=== PATIENT | female | born 1955 | race Caucasian/White ===

== ENCOUNTER 2018-02-21 13:05 | Inpatient (IN) | payer BC, MEDICARE ==
[2018-02-21 14:32] LABS: Basophils # (A) 0.1 k/uL (0-0.2); Basophils % (A) 1 %; Eosinophils # (A) 0.1 k/uL (0-0.7); Eosinophils % (A) 1 %; HCT 36.5 % (34.0-46.0); HGB 12.7 gm/dL (11.4-16.0); Lymphocytes # (A) 1.9 k/uL (1.0-4.8); Lymphocytes % (A) 28 %; MCH 31.8 pg (25.0-35.0); MCHC 34.8 g/dL (31.0-37.0); MCV 91.2 fL (80.0-100.0); Mean Platelet Volume 6.6; Monocytes # (A) 0.4 k/uL (0-1.0); Monocytes % (A) 6 %; Neutrophils # (A) 4.4 k/uL (1.3-7.7); Neutrophils % (A) 63 %; Platelet Count 245 k/uL (150-450); RDW 12.9 % (11.5-15.5)
[2018-02-21 14:51] LABS: Calcium 8.7 mg/dL (8.4-10.2); Potassium 4.1 mmol/L (3.5-5.1)
[2018-02-21 15:00] LABS: Amphetamine Screen,Urine Not Detected (NotDetected); Barbiturate Screen,Urine Not Detected (NotDetected); Benzodiazepines Screen,Urine Not Detected (NotDetected); Cocaine Screen,Urine Not Detected (NotDetected); Methadone Screen, Urine Not Detected (NotDetected); Opiate Screen,Urine Not Detected (NotDetected); Oxycodone Screen, Urine Not Detected (NotDetected); Phencyclidine Screen,Urine Not Detected (NotDetected); Tricyclic Antidepressant,Urine Not Detected (NotDetected); Urn Cannabinoid Scrn Not Detected (NotDetected)
[2018-02-21 15:39] LABS: Appearance,Urine Clear (Clear); Bilirubin,Urine Negative (Negative); Blood,Urine Negative (Negative); Color,Urine Yellow; Glucose,Urine (UA) Negative (Negative); Ketones,Urine Negative (Negative); Leukocyte Esterase,Urine Negative (Negative); Nitrite,Urine Negative (Negative); PH, Urine 5.5 (5.0-8.0); Protein,Urine Trace (Negative); Specific Gravity,Urine 1.014 (1.001-1.035); Urobilinogen,Urine <2.0 mg/dL (<2.0)
--- NOTE | 2018-02-21 15:51 | ED ---
General Adult HPI - General Chief complaint: Psychiatric Symptoms Stated complaint: DEMENTIA, ANGRY OUTBURSTS Time Seen by Provider: 02/21/18 13:05 Source: EMS, RN notes reviewed Mode of arrival: EMS Limitations: altered mental status - History of Present Illness Initial comments: this is a 62-year-old female who presents emergency Department with a 8-9 year history of advancing dementia. is trying to get the patient in a extended care facility because he is unable to take care of her because he works all day. He states that she is becoming unsafe even to the point where she is unable to go to the bathroom on her own. Today a manager social media came [facility] to speak with the patient and the patient got extremely angry and started saying that she was given a kill herself at this point time EMS was called as were the police. Patient doesn't know why she is here and doesn't believe she needs to be here and has no complaints. Patient is alert and oriented times one and she doesn't know the day of the week she doesn't know the name of the hospital and she doesn't know the year. states from a physical standpoint he does not know of any problems at this time he states she has not complained of any pain she has not had any problems breathing there's been no fevers been no vomiting or diarrhea. - Related Data Home Medications Medication Instructions Recorded Confirmed Ergocalciferol [Vitamin D2 50,000 unit PO TUFR 03/14/14 02/21/18 (DRISDOL)] Gabapentin [Neurontin] 300 mg PO QAM 03/14/14 02/21/18 Levothyroxine Sodium [Synthroid] 25 mcg PO DAILY 03/14/14 02/21/18 Donepezil [Aricept] 10 mg PO HS 06/24/15 02/21/18 Gabapentin [Neurontin] 200 mg PO HS 06/24/15 02/21/18 Multivit-Min/FA/Lycopene/Lut 1 tab PO DAILY 06/24/15 02/21/18 [Centrum Silver Tablet] Calcitriol [Rocaltrol] 0.25 mcg PO Q7D 02/21/18 02/21/18 FLUoxetine HCL [PROzac] 10 mg PO DAILY 02/21/18 02/21/18 Fish Oil 1400mg 1 cap PO DAILY 02/21/18 02/21/18 Memantine HCl [Namenda Xr] 7 mg PO DAILY 02/21/18 02/21/18 traMADol HCL [traMADol HCL ER] 100 mg PO DAILY PRN 02/21/18 02/21/18 Previous Rx's Medication Instructions Recorded Aspirin EC [Ecotrin Low Dose] 81 mg PO DAILY #1 tablet. 09/03/14 Allergies Allergy/AdvReac Type Severity Reaction Status Date / Time No Known Allergies Allergy Verified 02/21/18 13:30 Review of Systems ROS Statement: Those systems with pertinent positive or pertinent negative responses have been documented in the HPI. ROS Other: All systems not noted in ROS Statement are negative. Past Medical History Past Medical History: Dementia, Hypertension, Memory Impairment, Osteoarthritis (OA), Pneumonia, Thyroid Disorder Additional Past Medical History / Comment(s): Crohns, KIDNEY STONE, ANEMIA, ACUTE CORANARY SYNDROME History of Any Multi-Drug Resistant Organisms: None Reported Past Surgical History: Adenoidectomy, Bowel Resection, Cholecystectomy, Heart Catheterization, Hysterectomy, Tonsillectomy, Tubal Ligation Additional Past Surgical History / Comment(s): kidney stone X2 (February 2014, few weeks later second one via Johann), Gallblader (FEBRUARY 2014 [facility]), Bowel Resection d/t [id number], SMALL BOWEL CAPSULE ENDOSCOPY, COLONOSCOCPY. Past Anesthesia/Blood Transfusion Reactions: No Reported Reaction Past Psychological History: Depression Smoking Status: Former smoker Past Alcohol Use History: None Reported Past Drug Use History: None Reported - Past Family History Mother History Unknown: Yes Father History Unknown: Yes Sister(s) Family Medical History: Asthma Additional Family Medical History / Comment(s): Passed on from asthma attack General Exam - General Exam Comments Initial Comments: GENERAL: Patient is well-developed and well-nourished. Patient is nontoxic and well- hydrated and is in no acute distress. ENT: Neck is soft and supple. No significant lymphadenopathy is noted. Oropharynx is clear. Moist mucous membranes. Neck has full range of motion without eliciting any pain. EYES: The sclera were anicteric and conjunctiva were pink and moist. Extraocular movements were intact and pupils were equal round and reactive to light. Eyelids were unremarkable. PULMONARY: Unlabored respirations. Good breath sounds bilaterally. No audible rales rhonchi or wheezing was noted. CARDIOVASCULAR: There is a regular rate and rhythm without any murmurs gallops or rubs. ABDOMEN: Soft and nontender with normal bowel sounds. SKIN: Skin is clear with no lesions or rashes and otherwise unremarkable. NEUROLOGIC: Patient is alert and oriented 1. Cranial nerves II through XII are grossly intact. Motor and sensory are also intact. Normal speech, volume and content. Symmetrical smile. MUSCULOSKELETAL: Normal extremities with adequate strength and full range of motion. No lower extremity swelling or edema. No calf tenderness. LYMPHATICS: No significant lymphadenopathy is noted PSYCHIATRIC: Patient is angry and uncooperative because she does not want to be here. Limitations: altered mental status Course Vital Signs 02/21/18 13:07 Temperature 97 F L Pulse Rate 64 Respiratory 18 Rate Blood Pressure 153/72 O2 Sat by Pulse 100 Oximetry Medical Decision Making - Medical Decision Making I spoke with Dr. Snowden he agreed to admit the patient I consult the psychiatry and social work Patient is not admitted to being suicidal when I talked were however when she's angry she starts saying that to her . - Lab Data Result diagrams: 02/21/18 14:22 02/21/18 14:22 Lab Results 02/21/18 02/21/18 02/21/18 Range/Units 14:22 14:22 14:35 WBC 7.0 (3.8-10.6) k/uL RBC 4.00 (3.80-5.40) m/uL Hgb 12.7 (11.4-16.0) gm/dL Hct 36.5 (34.0-46.0) % MCV 91.2 (80.0-100.0) fL MCH 31.8 (25.0-35.0) pg MCHC 34.8 (31.0-37.0) g/dL RDW 12.9 (11.5-15.5) % Plt Count 245 (150-450) k/uL Neutrophils % 63 % Lymphocytes % 28 % Monocytes % 6 % Eosinophils % 1 % Basophils % 1 % Neutrophils # 4.4 (1.3-7.7) k/uL Lymphocytes # 1.9 (1.0-4.8) k/uL Monocytes # 0.4 (0-1.0) k/uL Eosinophils # 0.1 (0-0.7) k/uL Basophils # 0.1 (0-0.2) k/uL Sodium 145 (137-145) mmol/L Potassium 4.1 (3.5-5.1) mmol/L Chloride 112 H (98-107) mmol/L Carbon Dioxide 20 L (22-30) mmol/L Anion Gap 13 mmol/L BUN 11 (7-17) mg/dL Creatinine 1.60 H (0.52-1.04) mg/dL Est GFR (CKD-EPI)AfAm 39 (>60 ml/min/1.73 sqM) Est GFR (CKD-EPI)NonAf 34 (>60 ml/min/1.73 sqM) Glucose 72 L (74-99) mg/dL Calcium 8.7 (8.4-10.2) mg/dL Urine Color Urine Appearance (Clear) Urine pH (5.0-8.0) Ur Specific Crucible (1.001-1.035) Urine Protein (Negative) Urine Glucose (UA) (Negative) Urine Ketones (Negative) Urine Blood (Negative) Urine Nitrite (Negative) Urine Bilirubin (Negative) Urine Urobilinogen (<2.0) mg/dL Ur Leukocyte Esterase (Negative) Urine Opiates Screen Not Detected (NotDetected) Ur Oxycodone Screen Not Detected (NotDetected) Urine Methadone Screen Not Detected (NotDetected) Ur Propoxyphene Screen Not Detected (NotDetected) Ur Barbiturates Screen Not Detected (NotDetected) U Tricyclic Antidepress Not Detected (NotDetected) Ur Phencyclidine Scrn Not Detected (NotDetected) Ur Amphetamines Screen Not Detected (NotDetected) U Methamphetamines Scrn Not Detected (NotDetected) U Benzodiazepines Scrn Not Detected (NotDetected) Urine Cocaine Screen Not Detected (NotDetected) U Marijuana (THC) Screen Not Detected (NotDetected) 02/21/18 Range/Units 14:35 WBC (3.8-10.6) k/uL RBC (3.80-5.40) m/uL Hgb (11.4-16.0) gm/dL Hct (34.0-46.0) % MCV (80.0-100.0) fL MCH (25.0-35.0) pg MCHC (31.0-37.0) g/dL RDW (11.5-15.5) % Plt Count (150-450) k/uL Neutrophils % % Lymphocytes % % Monocytes % % Eosinophils % % Basophils % % Neutrophils # (1.3-7.7) k/uL Lymphocytes # (1.0-4.8) k/uL Monocytes # (0-1.0) k/uL Eosinophils # (0-0.7) k/uL Basophils # (0-0.2) k/uL Sodium (137-145) mmol/L Potassium (3.5-5.1) mmol/L Chloride (98-107) mmol/L Carbon Dioxide (22-30) mmol/L Anion Gap mmol/L BUN (7-17) mg/dL Creatinine (0.52-1.04) mg/dL Est GFR (CKD-EPI)AfAm (>60 ml/min/1.73 sqM) Est GFR (CKD-EPI)NonAf (>60 ml/min/1.73 sqM) Glucose (74-99) mg/dL Calcium (8.4-10.2) mg/dL Urine Color Yellow Urine Appearance Clear (Clear) Urine pH 5.5 (5.0-8.0) Ur Specific Crucible 1.014 (1.001-1.035) Urine Protein Trace H (Negative) Urine Glucose (UA) Negative (Negative) Urine Ketones Negative (Negative) Urine Blood Negative (Negative) Urine Nitrite Negative (Negative) Urine Bilirubin Negative (Negative) Urine Urobilinogen <2.0 (<2.0) mg/dL Ur Leukocyte Esterase Negative (Negative) Urine Opiates Screen (NotDetected) Ur Oxycodone Screen (NotDetected) Urine Methadone Screen (NotDetected) Ur Propoxyphene Screen (NotDetected) Ur Barbiturates Screen (NotDetected) U Tricyclic Antidepress (NotDetected) Ur Phencyclidine Scrn (NotDetected) Ur Amphetamines Screen (NotDetected) U Methamphetamines Scrn (NotDetected) U Benzodiazepines Scrn (NotDetected) Urine Cocaine Screen (NotDetected) U Marijuana (THC) Screen (NotDetected) Disposition Clinical Impression: Advanced dementia, Adjustment reaction, Verbalizes suicidal thoughts Disposition: ADMITTED IP TO THIS [facility] Referrals: Omar Bustillo DO [Primary Care Provider] - 1-2 days Time of Disposition: 15:51
[2018-02-21] MEDS ORDERED: SODIUM CHLORIDE 0.9% 1,000 ML IV ONE (15:53)
[2018-02-22] MEDS ORDERED: GABAPENTIN 100 MG CAP PO SCH (00:15)
[2018-02-22] MEDS ORDERED: QUEtiapine 25 MG TAB PO SCH (00:30)
[2018-02-22] MEDS: DEXTROSE 5%-0.45% NACL 1,000 ML IV SCH ×2 (01:02→13:41)
[2018-02-22] MEDS: LEVOTHYROXINE 25 MCG TAB PO SCH (05:17)
--- NOTE | 2018-02-22 06:03 | HP ---
HISTORY AND PHYSICAL DATE OF SERVICE: 02/21/2018 PRESENTING COMPLAINT: Suicidal ideation. HISTORY OF PRESENTING COMPLAINT: This is a patient I saw last night on 02/21/2018. Patient is accompanied by her . The patient's chronic stable medical conditions include Crohn disease, had Takotsubo syndrome though repeat echo had showed normalized EF, seen by Dr. Schafer recently, hypothyroid, fibromyalgia. The patient has had dementia coming on for last 10 years, getting worse and patient becoming increasingly forgetful. goes to work, finds it difficult to now leave her at home. He has spoken to Dr. Bustillo and they were trying to get the patient to another place. stockroom worker came out and patient then threaten saying she did not want to leave and also threatened that she is going to kill herself and this precipitated getting her to the hospital. It is difficult to get much of a conversation out of the patient. Somewhat restless. REVIEW OF SYSTEMS: CONSTITUTIONAL: None. HEENT: None. RESPIRATORY: None. CARDIOVASCULAR: None. GASTROINTESTINAL: Has multiple stools a day. DERMATOLOGICAL: None. HEMATOLOGIC: None. LYMPHATIC: None. PSYCHIATRY: Forgetful. NEUROLOGICAL: None. PAST MEDICAL HISTORY: Past medical history of Crohn disease, Takotsubo syndrome, dementia, hypothyroid, fibromyalgia, kidney stones. PAST SURGICAL HISTORY: Adenoidectomy, bowel resection, cholecystectomy, cardiac catheterization, hysterectomy, tonsillectomy, tubal ligation, cholecystectomy, multiple bowel surgery by Dr. Jiménez way back, small bowel capsule endoscopy, several colonoscopies. PAST PSYCH HISTORY: Depression. SOCIAL HISTORY: The patient smoked from her teen years and quit in 1979, was smoking about a pack a week. Alcohol none. Lives with her . FAMILY HISTORY: Family history of asthma. HOME MEDICATIONS: 1. Ultram 100 mg p.o. daily p.r.n. 2. Centrum Silver 1 tablet p.o. daily. 3. Namenda XR 7 mg p.o. daily. 4. Synthroid 25 mcg p.o. daily. 5. Neurontin 200 mg at bedtime and 300 mg in the morning. 6. Fish oil 1 capsule p.o. daily. 7. Prozac 10 mg p.o. daily. 8. Vitamin D2, 50,000 units Monday and Monday. 9. Aricept 10 mg p.o. at bedtime. 10.Rocaltrol 0.25 mcg every 7 days. 11.Aspirin 81 mg p.o. daily. ALLERGIES: None. PHYSICAL EXAMINATION: Temperature 97.8, pulse 83, respirations 18, blood pressure 159/94, pulse ox 95% on room air. Repeat blood pressure was 119/76. GENERAL APPEARANCE: Average built, sitting up, somewhat restless. EYES: Pupils equal. Conjunctivae normal. HENT: External appearance of nose and ears normal. Oral cavity normal. Patient has got scanty hair. NECK: JVD not raised. Mass not palpable. RESPIRATORY: Effort Lungs are fair. CARDIOVASCULAR: First and second sounds normal. No edema. ABDOMEN: Soft, nontender. Liver and spleen not palpable. LYMPHATIC: No lymph node palpable in the neck or axillae. PSYCHIATRY: The patient is not sure where she is or why she is here or the month. INVESTIGATIONS: White count 7, hemoglobin 12.7. Potassium 4.1. BUN 11, creatinine 1.60. ASSESSMENT: 1. Acute suicidal ideations. 2. Elevated creatinine could be acute versus chronic kidney disease in the setting of multiple stools. 3. Hypoglycemia from probably decreased oral intake. 4. Advancing dementia. PLAN: Patient obviously not safe to be by herself. Needs a sitter. Will get a psychiatry opinion. In the meantime, will give patient 25 mg Seroquel for the night. Will do CT scan of the brain without contrast, B12, TSH. Maybe the Synthroid is a bit over replacement for this lady. If anything, patient looks a bit more hyper rather than hypothyroid. Will also cut back on the dose of Neurontin to see if that makes a difference. The patient will be given D5 and see if her renal function improves. We will also do a renal ultrasound. The patient needs to be in the hospital overnight for at least 2 nights. It is not found safe for patient to go home with mental condition and trying to make suicidal statements. Will have psychiatry evaluation for the same. Care was discussed with the patient's . MMCLARENCEL / SEANN: [id number] /
[2018-02-22] MEDS ORDERED: GABAPENTIN 300 MG CAP PO SCH (09:00)
[2018-02-22] MEDS: ASPIRIN 81 MG PO SCH (09:52)
[2018-02-22] MEDS: FLUoxetine HCL 10 MG CAP PO SCH (09:52)
[2018-02-22] MEDS: MEMANTINE 5 MG TAB PO SCH (09:52)
[2018-02-22] MEDS: GABAPENTIN 100 MG CAP PO SCH ×3 (09:52→19:39)
--- NOTE | 2018-02-22 10:09 | US ---
EXAMINATION TYPE: US abd limited kidneys/bladder DATE OF EXAM: 02/22/2018 COMPARISON: 03/13/2014 CLINICAL HISTORY: renal failure. Poor historian. Hx of GB removed EXAM MEASUREMENTS: Liver Length: 16.3 cm CBD: 0.5 cm CHD: 0.2 cm Right Kidney: 8.4 x 3.4 x 3.6 cm Left Kidney: 9.4 x 3.1 x 3.8 cm Pancreas: Tail obscured by overlying bowel gas Liver: wnl Gallbladder: Surgically absent CBD: wnl CHD: wnl Right Kidney: Multiple echogenic foci seen. Largest with shadow in lower pole = 0.8 x 1.0 cm. Medi al anechogenic lesion at hilum - 1.0 x 1.3 x 0.8 cm . There is mild cortical renal thinning noted. Left Kidney: Multiple echogenic foci seen, largest - 0.5 cm. Upper pole cystic appearing lesion = 0 .5 x 0.5 x 0.7 cm . There is mild cortical renal thinning noted. Bladder: wnl Bilateral Jets not seen IMPRESSION: Sonographic evidence of medical renal disease and bilateral nonobstructing nephrolithiasi s. Right renal cyst and probable subcentimeter left renal cyst are identified.
[2018-02-22] MEDS ORDERED: QUEtiapine 25 MG TAB PO PRN (15:26)
--- NOTE | 2018-02-22 15:26 | P.CN ---
Psychiatric Consult - . Consult date: 02/22/18 Consult:: 02/22/18 15:10 Identification: Patient is a 62-year-old female who was admitted to the hospital after social work was seeing her discussing fdc placement and the patient reported that she was going to kill herself, social work called 911 and the police and EMS were called and brought the patient to the emergency room Reason for Consult: Suicidal ideation History of Present Illness: Patient's chart was reviewed and the patient was seen in her room for a brief period of time alone, her was also present later in the interview and was the primary historian. Patient was unable to give me any accurate history. Patient was unable to respond to questions in a relevant fashion, her sentences were coherent however not relevant and were noninformative. Patient's answers were vague such as "they go on and on at the house", when I do things going to ceramics, they won't leave me alone. When I asked the patient if she wanted to kill herself she said no "they are doing it, other people want it". Patient's was interviewed outside and he stated that his has been diagnosed with dementia for the last 8 years. He states that currently he has cameras in the house and can remotely control the television so is able to watch his during the day at home. She has never left the house or roamed out of the house, stating that she does go in the backyard but has never left the property. She is not able to cook and unless he leaves food out on the counter she is unable to find it in the refrigerator. Patient needs assistance with all of her activities of daily living, including needing some assistance in feeding herself so that she uses the correct utensils. Patient is also unable to toilet herself and is using adult diapers. Patient reports that he's been home for the last 16 days but prior to his being home when he was working on a full-time basis when he would return home she would be crying and stating that she is afraid to be alone and needs to be put someplace like a fdc. He states that since he is been home he's been trying to arrange this by researching different facilities and had a psychiatric social worker supervisor from [facility], and interviewed the patient yesterday, patient's reports she became quite upset stating that she did not want to go there and reporting that she wanted to . Patient did not make any effort to injure herself yesterday and he states that she has never made any suicide attempts and to his knowledge has no psychiatric history. Patient's reports that he is unable to care for her at home while he is working. He reports no physical confrontations and that mostly she is been very pleasant and happy at home, she has never made any statements about suicide to him in the past and he states that she is able to recognize friends, grandchildren but does not recall names at times. Past Psychiatric History: Patient's is unaware of any prior psychiatric history Past Medical/Surgical History: Patient has a history of thyroid disorder and is status post cholecystectomy appendectomy about resection secondary to Crohn's disease, had a heart catheterization and hysterectomy. Family History: He is unaware of a history of any dementia in her family Social History: Patient was before and her first is in halfway for murder, she had her current been for 32 years and she has 2 children from her prior marriage both adults. She and her live together and he is working full-time. Substance Use History: No history of alcohol or drug use Mental status: Appearance/Attitude: Patient is sitting in her hospital bed, she made intermittent eye contact and was cooperative Behavior: Patient did not exhibit any psychomotor agitation or retardation Speech/Language: Patient spoke in a normal volume and tone she was coherent but not relevant Thought Process: Patient was unable to respond to questions in a relevant fashion, with any detail and at times had difficulty finding her words Thought Content: Patient did not appear to be responding to any auditory or visual hallucinations, she did not express any delusional or paranoid ideation. Patient did recognize her friend by name came to visit, as well as she recognized her . When I asked the patient about why she stated she was suicidal she was unable to answer many making vague statements about they aren' t doing it,, other people want it Suicidal/Homicidal Ideation: Patient denied that she wanted to kill herself, no current homicidal ideation Sensorium/Cognition: Patient is alert and oriented to person, city and situation and further cognitive testing was not performed as the patient was unable to give me an accurate history Mood/Affect: Patient's mood was pleasant and her affect was appropriate Insight/Judgment: Patient's insight and judgment are impaired Assessment: Patient has had a diagnosis of dementia for the last 8 years, per her he is performing all of her activities of daily living, she needs assistance to eat so that she uses the correct utensils. She has never left the house, she has been crying and afraid to be alone when he was working full- time and he states he took off 2 weeks to arrange to have her transferred to a fdc as he is unable to continue taking care of her at home by himself. When the psychiatric social worker supervisor came to visit to do an assessment the patient became upset and stated that she wanted to and the psychiatric social worker supervisor called 911. Diagnosis: Major neurocognitive disorder Plan: Patient slept quietly in the hospital last evening and has been cooperative while she is been in the hospital. Patient became upset yesterday when placement in a fdc was discussed she voiced her that she didn't want to leave her house and then said she wanted to , he states that when he is been working and comes home she has requested to be put someplace because she dislikes being alone. I discussed with the that he needs to consider obtaining guardianship and he stated that he has spoken to an corporate associate attorney and has paperwork in process. I discussed that with the 's plans for fdc, we discussed need for a period of adjustment when she is placed. Patient was given Seroquel 25 mg at bedtime I will move this earlier in the evening and will also order 25 mg once a day on an as-needed basis should the patient become agitated. Patient may need to be discharged on this if she is being transferred to a fdc as I'm sure there will be a period of adjustment. At this time patient does not need a sitter for suicide precautions but would continue a sitter for safety reasons as the patient does need assistance with all of her activities of daily living. Patient is not appropriate for an inpatient psychiatric admission and does not require one. I will sign off the case if there are any further questions or concerns please don 't hesitate to contact me
[2018-02-22 16:23] LABS: Calcium 8.3 mg/dL (8.4-10.2); Potassium 4.6 mmol/L (3.5-5.1)
[2018-02-22] MEDS: QUEtiapine 25 MG TAB PO SCH (19:39)
[2018-02-22] MEDS: DONEPEZIL 10 MG TAB PO SCH (19:39)
--- NOTE | 2018-02-22 20:22 | PN ---
PROGRESS NOTE DATE OF SERVICE: 02/22/2018 PRESENTING COMPLAINT: Confused. INTERVAL HISTORY: This is a patient with advanced dementia, admitted initially with expressing suicidal thoughts. Seen earlier by Psychiatry, Dr. Mcmahon, today. Sitter for suicide purposes has been discontinued; more for safety reasons. Patient's daughter is at the bedside. Patient ate rather well today and also drank quite a bit of fluids. Other family members are present at the bedside. Patient is sitting up in bed, appears comfortable. REVIEW OF SYSTEMS: Done for constitutional, cardiovascular, GI, pulmonary; relevant findings as above. CURRENT MEDICATIONS: Reviewed. PHYSICAL EXAMINATION: Temperature 97.4, pulse 54, respiration 18, blood pressure 103/70, pulse ox 100% on room air. GENERAL APPEARANCE: Sitting up in bed. Comfortable. EYES: Pupils equal. Conjunctivae normal. HEENT: External appearance of nose and ears normal. Oral cavity normal. NECK: JVD not raised. Mass not palpable. RESPIRATORY: Effort normal. Lungs are clear. CARDIOVASCULAR: First and second sounds normal. No edema. ABDOMEN: Soft, nontender. Liver and spleen not palpable. PSYCHIATRY: Patient is only able to answer simple questions. Otherwise she does not know the month or the year or why she is here. INVESTIGATIONS: Potassium 4.6, BUN 12, creatinine 1.62. Bicarb is 24. Renal ultrasound shows bilateral cortical thinning and evidence of nephrolithiasis. ASSESSMENT: 1. Major neurocognitive disorder, likely from advancing Alzheimer's dementia. 2. Hypoglycemia, improving. 3. Chronic kidney disease, stage III, probably from chronic nephrolithiasis. 4. Bilateral nephrolithiasis, asymptomatic. 5. Metabolic acidosis from renal failure, improving. Pending CT scan and TSH results. PLAN: Spoke to the patient's daughter at length. Psychiatry has put the patient on Seroquel p.r.n., including the evening dose. Will discontinue the IV fluids. balancing machine set up worker is looking into placement. MMODL / IJN: [id number] /
--- NOTE | 2018-02-22 20:29 | CT ---
EXAMINATION TYPE: CT brain wo con DATE OF EXAM: 02/22/2018 COMPARISON: NONE HISTORY: Dementia CT DLP: 1027.1 mGycm Automated exposure control for dose reduction was used. FINDINGS: There is cerebral moderate cortical atrophy. There is no mass effect nor midline shift. There is no s ign of intracranial hemorrhage. There is a 4 x 2 cm area of hypodensity in the right parietal lobe co rtex consistent with old infarct. The calvarium is intact. IMPRESSION: CEREBRAL ATROPHY. OLD RIGHT PARIETAL CORTICAL INFARCT. NO ACUTE INTRACRANIAL ABNORMALITY.
[2018-02-23] MEDS: LEVOTHYROXINE 25 MCG TAB PO SCH (06:32)
[2018-02-23] MEDS: DEXTROSE 5%-0.45% NACL 1,000 ML IV SCH ×2 (06:33)
[2018-02-23] MEDS: ASPIRIN 81 MG PO SCH (08:39)
[2018-02-23] MEDS: FLUoxetine HCL 10 MG CAP PO SCH (08:39)
[2018-02-23] MEDS: MEMANTINE 5 MG TAB PO SCH (08:40)
[2018-02-23] MEDS: GABAPENTIN 100 MG CAP PO SCH ×3 (08:40→22:26)
--- NOTE | 2018-02-23 16:02 | PN ---
PROGRESS NOTE DATE OF SERVICE: 02/23/2018 PRESENTING COMPLAINT: Tired. INTERVAL HISTORY: This is a patient with dementia, admitted with initial suicidal ideation. Seen by Psychiatry; nothing further to be added. Patient is otherwise tolerating a diet. qualified craft worker electrician is looking into placement. REVIEW OF SYSTEMS: Done for constitutional, cardiovascular, GI, pulmonary; relevant findings as above. CURRENT MEDICATIONS: Reviewed. They include: 1. Aricept. 2. Prozac. 3. Neurontin. 4. Synthroid. 5. Namenda. 6. Seroquel. PHYSICAL EXAMINATION: Temperature 97.5, pulse 54, respiration 16, blood pressure 112/72, pulse ox 100% on room air. GENERAL APPEARANCE: Sitting up on a chair, comfortable. EYES: Pupils equal. Conjunctivae normal. HEENT: External appearance of nose and ears normal. Oral cavity normal. NECK: JVD not raised. Mass not palpable. RESPIRATORY: Effort normal. Lungs are clear. CARDIOVASCULAR: First and second sounds normal. No edema. ABDOMEN: Soft, nontender. Liver and spleen not palpable. PSYCHIATRY: Patient can only answer simple questions. Does not know why she is here. INVESTIGATIONS: CT scan of the brain shows atrophic changes. Potassium 4.6. Creatinine 1.62. TSH normal. ASSESSMENT: 1. Major neurocognitive disorder, likely from advancing Alzheimer's dementia. 2. Chronic kidney disease, stage III, probably from chronic nephrolithiasis. 3. Bilateral nephrolithiasis, asymptomatic. 4. Metabolic acidosis from renal failure. PLAN: Continue current medication and treatment plan. Discontinue IV fluids. The patient has been tolerating a diet. I spoke to , 7th grade social studies teacher, who is looking for placement. MMODL / IJN: [id number] /
[2018-02-23] MEDS: QUEtiapine 25 MG TAB PO SCH (20:04)
[2018-02-23] MEDS: DONEPEZIL 10 MG TAB PO SCH (20:04)
[2018-02-24] MEDS: LEVOTHYROXINE 25 MCG TAB PO SCH (06:49)
[2018-02-24] MEDS: GABAPENTIN 100 MG CAP PO SCH ×3 (08:22→20:39)
[2018-02-24] MEDS: MEMANTINE 5 MG TAB PO SCH (08:22)
[2018-02-24] MEDS: FLUoxetine HCL 10 MG CAP PO SCH (08:22)
[2018-02-24] MEDS: ASPIRIN 81 MG PO SCH (08:22)
--- NOTE | 2018-02-24 14:26 | P.PN ---
Subjective Progress Note Date: 02/24/18 Progress note being dictated for Dr. Poe. Interval history: This is a 61-year-old female admitted with major neurocognitive disorder, suspected advancing Alzheimer's dementia, suicidal ideation, awaiting placement. Brain CT reporting cerebral atrophy, old right parietal cortical infarct, no acute intracranial abnormality. Continue intake consuming 75%. Evaluated by psychiatry with recommendations noted. Denies chest pain, palpitations or increased shortness of breath. Creatinine 1.62. Objective - Vital Signs Vital signs: Vital Signs Temp 99.4 F 02/24/18 14:15 Pulse 63 02/24/18 14:15 Resp 18 02/24/18 14:15 BP 114/81 02/24/18 14:15 Pulse Ox 98 02/24/18 14:15 Intake & Output 02/23/18 02/24/18 02/24/18 18:59 06:59 18:59 Intake Total 480 Balance 480 Intake: Oral 480 Other: Voiding Method Toilet # Voids 2 1 - Exam PHYSICAL EXAM: VITAL SIGNS: As above GENERAL: Sitting up in bed, no acute distress HEENT: Conjunctivae normal. eyes normal. Oral mucosa moist NECK: No JVD. No thyroid enlargement. No LNs CARDIOVASCULAR: S1, S2 muffled. No murmur RESPIRATION: Breath sounds diminished in the bases. No rhonchi or crackles. No bronchial breathing. ABDOMEN: Soft, nontender . No guarding. no masses palpable.Bowel sounds heard. LEGS: No edema. no swelling PSYCHIATRY: Alert and oriented -1, confused, cooperative. NERVOUS SYSTEM: Cranial N 2-12 grossly normal. Moves all 4 limbs. Diffuse weakness No focal deficits. - Labs CBC & Chem 7: 02/21/18 14:22 02/22/18 16:05 Assessment and Plan Assessment: 1. Acute metabolic encephalopathy, major neurocognitive disorder, suspected advancing Alzheimer's dementia. 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 2. Chronic kidney disease, stage III, probably from chronic nephrolithiasis 3. Bilateral nephrolithiasis, asymptomatic 4. Metabolic acidosis secondary to renal failure Plan: Continue on current medication regime , Seroquel, monitoring and symptomatic treatment. Maintain safety and occupational health manager. Close monitoring of Renal function with repeat labs ordered for a.m. Discharge planning in progress, pending ECF placement. The impression and plan of care has been dictated as directed. Dr.: I performed a history and examination of this patient, discussed the same with the dictator. I agree with the dictator's note ,documented as a scribe. Any additional findings or plans will be noted.
[2018-02-24] MEDS: SODIUM CHLORIDE 0.9% 1,000 ML IV SCH (16:26)
[2018-02-24] MEDS: QUEtiapine 25 MG TAB PO SCH (20:39)
[2018-02-24] MEDS: DONEPEZIL 10 MG TAB PO SCH (20:39)
[2018-02-25] MEDS: SODIUM CHLORIDE 0.9% 1,000 ML IV SCH ×2 (05:25→15:11)
[2018-02-25] MEDS: LEVOTHYROXINE 25 MCG TAB PO SCH (06:38)
[2018-02-25] MEDS: FLUoxetine HCL 10 MG CAP PO SCH (08:01)
[2018-02-25] MEDS: GABAPENTIN 100 MG CAP PO SCH ×3 (08:01→21:06)
[2018-02-25] MEDS: ASPIRIN 81 MG PO SCH (08:01)
[2018-02-25] MEDS: MEMANTINE 5 MG TAB PO SCH (08:01)
[2018-02-25 08:56] LABS: Calcium 8.2 mg/dL (8.4-10.2); Potassium 4.3 mmol/L (3.5-5.1)
[2018-02-25] MEDS: DONEPEZIL 10 MG TAB PO SCH (20:17)
[2018-02-25] MEDS: QUEtiapine 25 MG TAB PO SCH (20:17)
[2018-02-26] MEDS: SODIUM CHLORIDE 0.9% 1,000 ML IV SCH ×2 (06:25→15:57)
[2018-02-26] MEDS: LEVOTHYROXINE 25 MCG TAB PO SCH (06:26)
[2018-02-26 07:43] VITALS: RESP 16
[2018-02-26] MEDS: FLUoxetine HCL 10 MG CAP PO SCH (07:48)
[2018-02-26] MEDS: ASPIRIN 81 MG PO SCH (07:48)
[2018-02-26] MEDS: GABAPENTIN 100 MG CAP PO SCH ×3 (07:48→21:25)
[2018-02-26] MEDS: MEMANTINE 5 MG TAB PO SCH (07:48)
[2018-02-26 10:48] LABS: Calcium 8.8 mg/dL (8.4-10.2); Potassium 4.3 mmol/L (3.5-5.1)
[2018-02-26] MEDS: QUEtiapine 25 MG TAB PO SCH (21:25)
[2018-02-26] MEDS: DONEPEZIL 10 MG TAB PO SCH (21:25)
--- NOTE | 2018-02-26 23:55 | P.PN ---
Subjective Progress Note Date: 02/25/18 Principal diagnosis: Suicidal ideation Mrs. Lorraine Coleman is 62-year-old female with the past medical history of Crohn's disease, Takasubo syndrome, dementia that is progressively worsening admitted to the hospital as she was threatening her social workers that she does not want to live a life like this and want to kill herself. She was brought in by her to the hospital. Her has been taking care of on and she is becoming increasingly forgetful and now it is difficult for him to take care of her at home. She was evaluated by psychiatric services. Today when I examined her she has a sitter at the bedside. She is not oriented to time, place, name or her date of . She could just give me her name. Review of systems: Could not be done as the patient is demented. Objective - Vital Signs Vital signs: Vital Signs Temp 98.5 F 02/25/18 05:45 Pulse 68 02/25/18 05:45 Resp 16 02/25/18 05:45 BP 115/67 02/25/18 05:45 Pulse Ox 97 02/25/18 05:45 Intake & Output 02/24/18 02/25/18 02/25/18 18:59 06:59 18:59 Other: Voiding Method Toilet Bedside Commode Incontinent # Voids 2 1 - Exam GENERAL EXAM GEN. APPEARANCE: alert, in no apparent distress HEAD EXAM: atraumatic, normocephalic, normal inspection EYE EXAM: normal appearance, PERRL, EOMI. Absent: scleral icterus, conjunctival injection, periorbital swelling ENT EXAM: normal exam, mucous membranes moist NECK EXAM: normal inspection. RESPIRATORY EXAM: normal lung sounds bilaterally. No respiratory distress, wheezes, rales, rhonchi or stridor CARDIOVASCULAR EXAM: regular rate, normal rhythm, normal heart sounds. Absent : systolic murmur, diastolic murmur, rubs, gallop, clicks GI/ABDOMINAL EXAM: soft, normal bowel sounds. Absent: distended, tenderness, guarding, rebound, rigid EXTREMITIES EXAM: normal inspection, full ROM, normal capillary refill. Absent : tenderness, pedal edema, joint swelling, calf tenderness NEUROLOGICAL EXAM: Follows simple commands. No focal deficits. - Labs CBC & Chem 7: 02/21/18 14:22 02/25/18 07:44 Labs: Abnormal Lab Results - Last 24 Hours (Table) 02/25/18 Range/Units 07:44 Chloride 112 H (98-107) mmol/L Carbon Dioxide 21 L (22-30) mmol/L Creatinine 1.69 H (0.52-1.04) mg/dL Calcium 8.2 L (8.4-10.2) mg/dL Assessment and Plan Plan: ASSESSMENT Acute suicidal ideation Advancing dementia Chronic kidney disease stage III PLAN As the patient does not save to be by herself and her cannot take care of her anymore she is admitted to the hospital. Patient is not suicidal currently. Patient has ongoing workup for dementia. Patient has a sitter at the bedside. pupil personnel worker on board for placement. We will continue with the current medication regimen and further recommendations depending on the progress of the patient.
--- NOTE | 2018-02-26 23:57 | P.PN ---
Subjective Progress Note Date: 02/26/18 Principal diagnosis: Suicidal ideation Mrs. Lorraine Coleman is 62-year-old female with the past medical history of Crohn's disease, Takasubo syndrome, dementia that is progressively worsening admitted to the hospital as she was threatening her social workers that she does not want to live a life like this and want to kill herself. She was brought in by her to the hospital. Her has been taking care of on and she is becoming increasingly forgetful and now it is difficult for him to take care of her at home. She was evaluated by psychiatric services. Today when I examined her she has a sitter at the bedside. She is not oriented to time, place, name or her date of . She could just give me her name. Review of systems: Could not be done as the patient is demented. Objective - Vital Signs Vital signs: Vital Signs Temp 97.2 F L 02/26/18 22:25 Pulse 82 02/26/18 22:25 Resp 16 02/26/18 22:25 BP 112/48 02/26/18 22:25 Pulse Ox 99 02/26/18 22:25 Intake & Output 02/26/18 02/26/18 02/27/18 06:59 18:59 06:59 Intake Total 500 Balance 500 Intake: Oral 500 Other: Voiding Method Toilet # Voids 1 2 2 - Exam GENERAL EXAM GEN. APPEARANCE: alert, in no apparent distress HEAD EXAM: atraumatic, normocephalic, normal inspection EYE EXAM: normal appearance, PERRL, EOMI. Absent: scleral icterus, conjunctival injection, periorbital swelling ENT EXAM: normal exam, mucous membranes moist NECK EXAM: normal inspection. RESPIRATORY EXAM: normal lung sounds bilaterally. No respiratory distress, wheezes, rales, rhonchi or stridor CARDIOVASCULAR EXAM: regular rate, normal rhythm, normal heart sounds. Absent : systolic murmur, diastolic murmur, rubs, gallop, clicks GI/ABDOMINAL EXAM: soft, normal bowel sounds. Absent: distended, tenderness, guarding, rebound, rigid EXTREMITIES EXAM: normal inspection, full ROM, normal capillary refill. Absent : tenderness, pedal edema, joint swelling, calf tenderness NEUROLOGICAL EXAM: Follows simple commands. No focal deficits. - Labs CBC & Chem 7: 02/21/18 14:22 02/26/18 10:02 Labs: Abnormal Lab Results - Last 24 Hours (Table) 02/26/18 Range/Units 10:02 Chloride 111 H (98-107) mmol/L Creatinine 1.76 H (0.52-1.04) mg/dL Assessment and Plan Plan: ASSESSMENT Acute suicidal ideation Advancing dementia Chronic kidney disease stage III PLAN As the patient does not save to be by herself and her cannot take care of her anymore she is admitted to the hospital. Patient is not suicidal currently. Patient has ongoing workup for dementia. Patient has a sitter at the bedside. building construction ironworker on board for placement. We will continue with the current medication regimen and further recommendations depending on the progress of the patient.
[2018-02-27] MEDS: SODIUM CHLORIDE 0.9% 1,000 ML IV SCH (06:26)
[2018-02-27] MEDS: LEVOTHYROXINE 25 MCG TAB PO SCH (06:27)
[2018-02-27] MEDS: GABAPENTIN 100 MG CAP PO SCH ×2 (08:56→15:25)
[2018-02-27] MEDS: FLUoxetine HCL 10 MG CAP PO SCH (08:56)
[2018-02-27] MEDS: MEMANTINE 5 MG TAB PO SCH (08:56)
[2018-02-27] MEDS: ASPIRIN 81 MG PO SCH (08:56)
[2018-02-27 14:33] VITALS: BP 137/74; PULSE 66; TEMP 96.9
--- NOTE | 2018-02-27 15:18 | P.DS ---
Providers Date of admission: 02/22/18 10:25 Expected date of discharge: 02/27/18 Attending physician: Aden Snowden Consults: 02/21/18 15:53 Consult Physician Urgent Consulting Provider: Obdulia Mcmahon Consult Reason/Comments: Suicidal statements Do you want consulting provider notified?: Yes Primary care physician: [facility] Course: Hospital Course: Mrs. Lorraine Coleman is 62-year-old female with the past medical history of Crohn's disease, Takasubo syndrome, dementia that is progressively worsening admitted to the hospital as she was threatening her social workers that she does not want to live a life like this and want to kill herself. She was brought in by her to the hospital. Her has been taking care of on and she is becoming increasingly forgetful and now it is difficult for him to take care of her at home. She was evaluated by psychiatric services and does not qualify of In patient Psychaitry. Today the patient was sitting at the bedside with her in the chair. Her states that she is not happy about the idea that she is being transferred to our facility and not to her home. But the states it's difficult for him to take care of her 24 x 7 and due to his work schedule. DISCHARGE DIAGNOSIS Acute suicidal ideation - resolved Advancing dementia Chronic kidney disease stage III PE GEN. APPEARANCE: alert, in no apparent distress HEAD EXAM: atraumatic, normocephalic, normal inspection EYE EXAM: normal appearance, PERRL, EOMI. Absent: scleral icterus, conjunctival injection, periorbital swelling ENT EXAM: normal exam, mucous membranes moist NECK EXAM: normal inspection. RESPIRATORY EXAM: normal lung sounds bilaterally. No respiratory distress, wheezes, rales, rhonchi or stridor CARDIOVASCULAR EXAM: regular rate, normal rhythm, normal heart sounds. Absent : systolic murmur, diastolic murmur, rubs, gallop, clicks GI/ABDOMINAL EXAM: soft, normal bowel sounds. Absent: distended, tenderness, guarding, rebound, rigid EXTREMITIES EXAM: normal inspection, full ROM, normal capillary refill. Absent : tenderness, pedal edema, joint swelling, calf tenderness NEUROLOGICAL EXAM: Follows simple commands. No focal deficits. Patient Condition at Discharge: Stable Plan - Discharge Summary Discharge Rx Participant: Yes New Discharge Prescriptions: Continue Gabapentin [Neurontin] 300 mg PO QAM Ergocalciferol [Vitamin D2 (DRISDOL)] 50,000 unit PO TUFR Levothyroxine Sodium [Synthroid] 25 mcg PO DAILY Aspirin EC [Ecotrin Low Dose] 81 mg PO DAILY #1 tablet. Multivit-Min/FA/Lycopene/Lut [Centrum Silver Tablet] 1 tab PO DAILY Gabapentin [Neurontin] 200 mg PO HS Donepezil [Aricept] 10 mg PO HS Fish Oil 1400mg 1 cap PO DAILY Memantine HCl [Namenda Xr] 7 mg PO DAILY traMADol HCL [traMADol HCL ER] 100 mg PO DAILY PRN PRN Reason: Pain Calcitriol [Rocaltrol] 0.25 mcg PO Q7D FLUoxetine HCL [PROzac] 10 mg PO DAILY Discharge Medication List Ergocalciferol [Vitamin D2 (DRISDOL)] 50,000 unit PO TUFR 03/14/14 [History] Gabapentin [Neurontin] 300 mg PO QAM 03/14/14 [History] Levothyroxine Sodium [Synthroid] 25 mcg PO DAILY 03/14/14 [History] Aspirin EC [Ecotrin Low Dose] 81 mg PO DAILY #1 tablet. 09/03/14 [Rx] Donepezil [Aricept] 10 mg PO HS 06/24/15 [History] Gabapentin [Neurontin] 200 mg PO HS 06/24/15 [History] Multivit-Min/FA/Lycopene/Lut [Centrum Silver Tablet] 1 tab PO DAILY 06/24/15 [ History] Calcitriol [Rocaltrol] 0.25 mcg PO Q7D 02/21/18 [History] FLUoxetine HCL [PROzac] 10 mg PO DAILY 02/21/18 [History] Fish Oil 1400mg 1 cap PO DAILY 02/21/18 [History] Memantine HCl [Namenda Xr] 7 mg PO DAILY 02/21/18 [History] traMADol HCL [traMADol HCL ER] 100 mg PO DAILY PRN 02/21/18 [History] Follow up Appointment(s)/Referral(s): Omar Bustillo DO [Primary Care Provider] - 1-2 days Activity/Diet/Wound Care/Special Instructions: *Client has a steady gait per physical therapy, needs standby assistance due to memory impairments and elopement risk. *Regular Diet Discharge Disposition: TRANSFER TO SNF/ECF
== END 2018-02-27 17:39 | DRG 56 ==
LOC: EC 13:05 → 3OBS 15:53 → OBSVTOIN 02-22 10:25 → 4MS4W 02-22 11:00
PROVIDERS: ADMIT Hospitalist; ATTEND Hospitalist
DX: G30.9 Alzheimer's disease, unspecified (principal); G93.41 Metabolic encephalopathy; R45.851 Suicidal ideations; K50.90 Crohn's disease, unspecified, without complications; I51.81 Takotsubo syndrome; E87.2 Acidosis; F02.80 Dementia in other diseases classified elsewhere, unspecified severity, without behavioral disturbance, psychotic disturbance, mood disturbance, and anxiety; N18.3 Chronic kidney disease, stage 3 (moderate); I12.9 Hypertensive chronic kidney disease with stage 1 through stage 4 chronic kidney disease, or unspecified chronic kidney disease; F43.20 Adjustment disorder, unspecified; E16.2 Hypoglycemia, unspecified; E03.9 Hypothyroidism, unspecified; N20.0 Calculus of kidney; M79.7 Fibromyalgia; M19.91 Primary osteoarthritis, unspecified site; Z79.890 Hormone replacement therapy; Z79.82 Long term (current) use of aspirin; Z79.899 Other long term (current) drug therapy; Z90.49 Acquired absence of other specified parts of digestive tract; Z90.710 Acquired absence of both cervix and uterus; Z87.442 Personal history of urinary calculi; Z87.891 Personal history of nicotine dependence; Z82.5 Family history of asthma and other chronic lower respiratory diseases; Z86.73 Personal history of transient ischemic attack (TIA), and cerebral infarction without residual deficits; Z87.01 Personal history of pneumonia (recurrent)
CPT/HCPCS: 36415; 51701; 70450; 76705; 76770; 80048; 80306; 81003; 82075; 82607; 84443; 85025; 99285

== ENCOUNTER 2018-05-03 18:45 | Inpatient (IN) | payer MEDICARE, OTHER ==
[2018-05-03] MEDS ORDERED: SODIUM CHLORIDE 0.9% 500 ML IV ONE (19:55)
--- NOTE | 2018-05-03 19:59 | ED ---
Psych HPI - General Chief Complaint: Psychiatric Symptoms Stated Complaint: Mental Health Time Seen by Provider: 05/03/18 19:16 Source: EMS Mode of arrival: EMS - History of Present Illness Initial Comments: 63-year-old female patient with past medical history significant for Alzheimer' s and dementia presents with to the emergency department today for evaluation of increased confusion, depression, and agitation. She has been living at [facility] for the last 2 months. states over the last week she has become increasingly depressed, crying, and wants to come home. States that she has attempted to elope from the facility multiple times. States that she has become increasingly agitated and more confused than usual. He states that she was recently diagnosed with urinary tract infection. She is taking Ceftin for this. States she has been complaining of right flank pain over the last couple of days. They deny any fever, vomiting, abdominal pain, chest pain, shortness of breath, dizziness, or weakness. Patient is a very poor historian and most of history comes from . - Related Data Home Medications Medication Instructions Recorded Confirmed RX: Ergocalciferol [Vitamin D2 50,000 unit PO TUFR 03/14/14 05/03/18 (DRISDOL)] RX: Gabapentin [Neurontin] 300 mg PO QAM 03/14/14 05/03/18 RX: Levothyroxine Sodium 25 mcg PO HS 03/14/14 05/03/18 [Synthroid] RX: Donepezil [Aricept] 10 mg PO HS 06/24/15 05/03/18 RX: Gabapentin [Neurontin] 200 mg PO HS 06/24/15 05/03/18 RX: Multivit-Min/FA/Lycopene/Lut 1 tab PO DAILY 06/24/15 05/03/18 [Centrum Silver Tablet] Fish Oil 1400mg 1 cap PO DAILY 02/21/18 05/03/18 RX: Calcitriol [Rocaltrol] 0.25 mcg PO Q7D 02/21/18 05/03/18 RX: FLUoxetine HCL [PROzac] 10 mg PO DAILY 02/21/18 05/03/18 RX: Memantine HCl [Namenda Xr] 7 mg PO DAILY 02/21/18 05/03/18 RX: traMADol HCL [Ultram ER] 100 mg PO DAILY PRN 02/21/18 05/03/18 ALPRAZolam [Xanax] 0.25 mg PO Q8HR PRN 05/03/18 05/03/18 Cefuroxime Axetil [Ceftin] 500 mg PO BID 05/03/18 05/03/18 RX: Aspirin EC [Ecotrin Low Dose] 81 mg PO HS 05/03/18 05/03/18 Allergies Allergy/AdvReac Type Severity Reaction Status Date / Time No Known Allergies Allergy Verified 05/03/18 20:03 Review of Systems ROS Statement: Those systems with pertinent positive or pertinent negative responses have been documented in the HPI. ROS Other: All systems not noted in ROS Statement are negative. Past Medical History Past Medical History: Dementia, Fibromyalgia, Hypertension, Memory Impairment, Osteoarthritis (OA), Thyroid Disorder Additional Past Medical History / Comment(s): Crohns, KIDNEY STONE, ANEMIA, ACUTE per pt's spouse pt had "broken heart syndrome in past", uti, past stress test History of Any Multi-Drug Resistant Organisms: None Reported Past Surgical History: Adenoidectomy, Bowel Resection, Cholecystectomy, Heart Catheterization, Hysterectomy, Tonsillectomy, Tubal Ligation Additional Past Surgical History / Comment(s): Gallblader (FEBRUARY 2014 [facility]), Bowel Resection d/t [id number], SMALL BOWEL CAPSULE ENDOSCOPY, several COLONOSCOCPY. Past Anesthesia/Blood Transfusion Reactions: No Reported Reaction Past Psychological History: Depression Smoking Status: Former smoker Past Alcohol Use History: None Reported Past Drug Use History: None Reported - Past Family History Mother History Unknown: Yes Father History Unknown: Yes Sister(s) Family Medical History: Asthma Additional Family Medical History / Comment(s): Passed on from asthma attack General Exam Limitations: altered mental status General appearance: alert, in no apparent distress Eye exam: Present: normal appearance, PERRL, EOMI. Absent: scleral icterus, conjunctival injection, periorbital swelling ENT exam: Present: normal exam, normal oropharynx Respiratory exam: Present: normal lung sounds bilaterally. Absent: respiratory distress, wheezes, rales, rhonchi, stridor Cardiovascular Exam: Present: regular rate, normal rhythm, normal heart sounds. Absent: systolic murmur, diastolic murmur, rubs, gallop, clicks GI/Abdominal exam: Present: soft, normal bowel sounds. Absent: distended, tenderness, guarding, rebound, rigid Back exam: Present: normal inspection, CVA tenderness (R). Absent: CVA tenderness (L) Neurological exam: Present: alert, oriented X3, CN II-XII intact Psychiatric exam: Present: normal affect, normal mood Skin exam: Present: warm, dry, intact, normal color. Absent: rash Course Vital Signs 05/03/18 05/03/18 19:02 22:55 Temperature 98.0 F Pulse Rate 66 59 L Respiratory 18 18 Rate Blood Pressure 114/70 136/70 O2 Sat by Pulse 100 100 Oximetry Medical Decision Making - Medical Decision Making 63-year-old female patient presents the emergency department today for evaluation of increased confusion, agitation, and right flank pain. Physical examination does reveal right CVA tenderness. She is afebrile. Labs reviewed did reveal an elevated creatinine at 1.6. Urinalysis was positive for leukocyte esterase and 55 white blood cells despite use of Ceftin. Urine will be sent for culture. Given patient's increased agitation, confusion, and right flank pain. We will admit her for pyelonephritis with acute metabolic encephalopathy. We will start her on Rocephin. She'll be admitted to Dr. Snowden. - Lab Data Result diagrams: 05/03/18 21:56 05/03/18 21:56 Lab Results 05/03/18 05/03/18 05/03/18 Range/Units 21:56 21:56 21:56 WBC 7.9 (3.8-10.6) k/uL RBC 3.54 L (3.80-5.40) m/uL Hgb 11.7 (11.4-16.0) gm/dL Hct 33.1 L (34.0-46.0) % MCV 93.7 (80.0-100.0) fL MCH 33.1 (25.0-35.0) pg MCHC 35.3 (31.0-37.0) g/dL RDW 15.5 (11.5-15.5) % Plt Count 199 (150-450) k/uL Neutrophils % 64 % Lymphocytes % 27 % Monocytes % 5 % Eosinophils % 3 % Basophils % 1 % Neutrophils # 5.1 (1.3-7.7) k/uL Lymphocytes # 2.1 (1.0-4.8) k/uL Monocytes # 0.4 (0-1.0) k/uL Eosinophils # 0.2 (0-0.7) k/uL Basophils # 0.1 (0-0.2) k/uL Sodium 141 (137-145) mmol/L Potassium 3.5 (3.5-5.1) mmol/L Chloride 112 H (98-107) mmol/L Carbon Dioxide 17 L (22-30) mmol/L Anion Gap 12 mmol/L BUN 12 (7-17) mg/dL Creatinine 1.60 H (0.52-1.04) mg/dL Est GFR (CKD-EPI)AfAm 39 (>60 ml/min/1.73 sqM) Est GFR (CKD-EPI)NonAf 34 (>60 ml/min/1.73 sqM) Glucose 82 (74-99) mg/dL Calcium 8.3 L (8.4-10.2) mg/dL Total Bilirubin 0.5 (0.2-1.3) mg/dL AST 21 (14-36) U/L ALT 23 (9-52) U/L Alkaline Phosphatase 69 (38-126) U/L Total Creatine Kinase 45 (30-135) U/L CK-MB (CK-2) 1.2 (0.0-2.4) ng/mL CK-MB (CK-2) Rel Index 2.7 Troponin I 0.014 (0.000-0.034) ng/mL Total Protein 5.6 L (6.3-8.2) g/dL Albumin 3.3 L (3.5-5.0) g/dL Amylase 79 (30-110) U/L Lipase 205 (23-300) U/L Urine Color Urine Appearance (Clear) Urine pH (5.0-8.0) Ur Specific [place] (1.001-1.035) Urine Protein (Negative) Urine Glucose (UA) (Negative) Urine Ketones (Negative) Urine Blood (Negative) Urine Nitrite (Negative) Urine Bilirubin (Negative) Urine Urobilinogen (<2.0) mg/dL Ur Leukocyte Esterase (Negative) Urine RBC (0-5) /hpf Urine WBC (0-5) /hpf Amorphous Sediment (None) /hpf 05/03/18 Range/Units 22:48 WBC (3.8-10.6) k/uL RBC (3.80-5.40) m/uL Hgb (11.4-16.0) gm/dL Hct (34.0-46.0) % MCV (80.0-100.0) fL MCH (25.0-35.0) pg MCHC (31.0-37.0) g/dL RDW (11.5-15.5) % Plt Count (150-450) k/uL Neutrophils % % Lymphocytes % % Monocytes % % Eosinophils % % Basophils % % Neutrophils # (1.3-7.7) k/uL Lymphocytes # (1.0-4.8) k/uL Monocytes # (0-1.0) k/uL Eosinophils # (0-0.7) k/uL Basophils # (0-0.2) k/uL Sodium (137-145) mmol/L Potassium (3.5-5.1) mmol/L Chloride (98-107) mmol/L Carbon Dioxide (22-30) mmol/L Anion Gap mmol/L BUN (7-17) mg/dL Creatinine (0.52-1.04) mg/dL Est GFR (CKD-EPI)AfAm (>60 ml/min/1.73 sqM) Est GFR (CKD-EPI)NonAf (>60 ml/min/1.73 sqM) Glucose (74-99) mg/dL Calcium (8.4-10.2) mg/dL Total Bilirubin (0.2-1.3) mg/dL AST (14-36) U/L ALT (9-52) U/L Alkaline Phosphatase (38-126) U/L Total Creatine Kinase (30-135) U/L CK-MB (CK-2) (0.0-2.4) ng/mL CK-MB (CK-2) Rel Index Troponin I (0.000-0.034) ng/mL Total Protein (6.3-8.2) g/dL Albumin (3.5-5.0) g/dL Amylase (30-110) U/L Lipase (23-300) U/L Urine Color Yellow Urine Appearance Cloudy H (Clear) Urine pH 6.0 (5.0-8.0) Ur Specific [place] 1.013 (1.001-1.035) Urine Protein 1+ H (Negative) Urine Glucose (UA) Negative (Negative) Urine Ketones Negative (Negative) Urine Blood Negative (Negative) Urine Nitrite Negative (Negative) Urine Bilirubin Negative (Negative) Urine Urobilinogen <2.0 (<2.0) mg/dL Ur Leukocyte Esterase Large H (Negative) Urine RBC 2 (0-5) /hpf Urine WBC 55 H (0-5) /hpf Amorphous Sediment Rare H (None) /hpf - EKG Data -: EKG Interpreted by Me EKG Comments: EKG obtained at 2026 shows sinus bradycardia with a sinus arrhythmia. Ventricular rate is 56, IL interval 176, QRS duration 82, QT 480, QTc 463. No evidence of ST elevation or depression. - Radiology Data Radiology results: report reviewed, image reviewed Two-view x-ray of the chest is obtained. There is no heart failure nor confluent pneumonic infiltrate. Costophrenic angles are clear. Heart size is normal. Bony thorax is intact. No active cardiopulmonary disease. Normal heart. No change. Disposition Clinical Impression: Pyelonephritis, Metabolic encephalopathy Disposition: ADMITTED IP TO THIS [facility] Condition: Serious Referrals: Omar Bustillo DO [Primary Care Provider] - 1-2 days Decision to Admit Reason: Admit from EC Decision Date: 05/04/18 Decision Time: 00:02
--- NOTE | 2018-05-03 20:50 | XR ---
EXAMINATION TYPE: XR chest 2V DATE OF EXAM: 05/03/2018 COMPARISON: 07/24/2016 HISTORY: Chest pain TECHNIQUE: Frontal and lateral views of the chest are obtained. FINDINGS: There is no heart failure nor confluent pneumonic infiltrate. Costophrenic angles are karyn r. Heart size is normal. Bony thorax is intact. IMPRESSION: No active cardiopulmonary disease. Normal heart. No change.
[2018-05-03 22:09] LABS: Basophils # (A) 0.1 k/uL (0-0.2); Basophils % (A) 1 %; Eosinophils # (A) 0.2 k/uL (0-0.7); Eosinophils % (A) 3 %; HCT 33.1 % (34.0-46.0); HGB 11.7 gm/dL (11.4-16.0); Lymphocytes # (A) 2.1 k/uL (1.0-4.8); Lymphocytes % (A) 27 %; MCH 33.1 pg (25.0-35.0); MCHC 35.3 g/dL (31.0-37.0); MCV 93.7 fL (80.0-100.0); Mean Platelet Volume 8.2; Monocytes # (A) 0.4 k/uL (0-1.0); Monocytes % (A) 5 %; Neutrophils # (A) 5.1 k/uL (1.3-7.7); Neutrophils % (A) 64 %; Platelet Count 199 k/uL (150-450); RBC 3.54 m/uL (3.80-5.40); RDW 15.5 % (11.5-15.5); WBC 7.9 k/uL (3.8-10.6)
[2018-05-03 22:19] LABS: Albumin 3.3 g/dL (3.5-5.0); Calcium 8.3 mg/dL (8.4-10.2); Potassium 3.5 mmol/L (3.5-5.1); Total Bilirubin 0.5 mg/dL (0.2-1.3); Total Protein 5.6 g/dL (6.3-8.2)
[2018-05-03 22:36] LABS: Creatine Kinase MB 1.2 ng/mL (0.0-2.4); Troponin I 0.014 ng/mL (0.000-0.034)
[2018-05-03 22:58] LABS: Amorphous Sediment,Urine Rare /hpf; Appearance,Urine Cloudy (Clear); Bilirubin,Urine Negative (Negative); Blood,Urine Negative (Negative); Color,Urine Yellow; Glucose,Urine (UA) Negative (Negative); Ketones,Urine Negative (Negative); Leukocyte Esterase,Urine Large (Negative); Nitrite,Urine Negative (Negative); Protein,Urine 1+ (Negative); RBC,Urine 2 /hpf (0-5); Specific Gravity,Urine 1.013 (1.001-1.035); Urobilinogen,Urine <2.0 mg/dL (<2.0); WBC,Urine 55 /hpf (0-5)
[2018-05-03] MEDS ORDERED: SODIUM CHLORIDE 0.9% 1,000 ML IV SCH (23:45)
[2018-05-03] MEDS ORDERED: ACETAMINOPHEN TAB 325 MG TAB PO PRN (23:56)
[2018-05-03] MEDS ORDERED: NALOXONE 0.4 MG/ML 1 ML VIAL IV PRN (23:56)
[2018-05-03] MEDS ORDERED: cefTRIAXone IN SWFI 2,000 MG/20 ML SYRINGE IVP STA (23:58)
[2018-05-04] MEDS ORDERED: HALOPERIDOL LACTATE 5 MG/ML 1 ML VIAL IM PRN (01:59)
[2018-05-04 07:32] VITALS: BP 104/75; PULSE 64; RESP 17; TEMP 96.7
[2018-05-04 07:53] LABS: Basophils % (A) 1 %; Eosinophils # (A) 0.1 k/uL (0-0.7); Eosinophils % (A) 2 %; HCT 32.2 % (34.0-46.0); HGB 10.9 gm/dL (11.4-16.0); Lymphocytes # (A) 1.7 k/uL (1.0-4.8); Lymphocytes % (A) 28 %; MCH 32.4 pg (25.0-35.0); MCHC 33.9 g/dL (31.0-37.0); MCV 95.4 fL (80.0-100.0); Mean Platelet Volume 6.5; Monocytes # (A) 0.4 k/uL (0-1.0); Monocytes % (A) 6 %; Neutrophils # (A) 3.9 k/uL (1.3-7.7); Neutrophils % (A) 63 %; Platelet Count 222 k/uL (150-450); RBC 3.38 m/uL (3.80-5.40); RDW 15.5 % (11.5-15.5); WBC 6.2 k/uL (3.8-10.6)
[2018-05-04 08:23] LABS: Albumin 2.8 g/dL (3.5-5.0); Calcium 7.9 mg/dL (8.4-10.2); Potassium 3.5 mmol/L (3.5-5.1); Total Bilirubin 0.4 mg/dL (0.2-1.3)
[2018-05-04] MEDS ORDERED: ALPRAZolam 0.25 MG TAB PO PRN (10:20)
[2018-05-04] MEDS ORDERED: traMADol 50 MG TAB PO PRN (10:20)
[2018-05-04] MEDS ORDERED: GABAPENTIN 300 MG CAP PO SCH (10:30)
[2018-05-04] MEDS ORDERED: GABAPENTIN 100 MG CAP PO SCH ×2 (10:30→21:00)
[2018-05-04] MEDS ORDERED: MULTIVITAMINS, THERA 1 EACH TAB PO SCH (12:00)
[2018-05-04] MEDS ORDERED: CALCITRIOL 0.25 MCG CAP PO SCH (12:00)
--- NOTE | 2018-05-04 15:03 | DS ---
DISCHARGE SUMMARY HISTORY AND PHYSICAL AND DISCHARGE SUMMARY: DATE OF ADMISSION: 05/04/2018 DATE OF DISCHARGE: 05/04/2018. PRESENTING COMPLAINT: Increasing confusion. HISTORY OF PRESENTING COMPLAINT: This is a 63-year-old patient who is currently a resident of [facility], has significant dementia, was noted to be a bit more agitated, walking around, more confused. Patient was being treated for UTI with Ceftin. Patient did complain of some flank pain and was transferred here. Patient has not had a fever. Patient did receive a dose of IV ceftriaxone which is better. Patient herself is not able to give much of a history, though can answer some simple questions. Most of the history is obtained by the at the bedside. REVIEW OF SYSTEMS: CONSTITUTIONAL: None. HEENT: None. RESPIRATORY: None. CARDIOVASCULAR: None. GASTROINTESTINAL: None. GENITOURINARY: None. MUSCULOSKELETAL: None. DERMATOLOGICAL: None. HEMATOLOGICAL: None. LYMPHATIC: None. PSYCHIATRY: Forgetful. NEUROLOGICAL: None. PAST MEDICAL HISTORY: Of Crohn disease, takotsubo syndrome, dementia, hypothyroid, fibromyalgia, kidney stones. PAST SURGICAL HISTORY: Adenoidectomy, bowel resection, cholecystectomy, cardiac cath, hysterectomy, tonsillectomy, tubal ligation, cholecystectomy, multiple bowel surgeries by Dr. Jiménez, small bowel capsule endoscopy, several colonoscopies. PSYCH HISTORY: Depression. SOCIAL HISTORY: Patient smoked about a pack and a half. Quit in the 1980s. Alcohol, none. . Currently a resident of [facility]. FAMILY HISTORY: Asthma. HOME MEDICATIONS: 1. Ultram ER 100 mg p.o. daily p.r.n. 2. Xanax 0.25 p.o. q.8 p.r.n. 3. Centrum Silver 1 tablet p.o. daily. 4. Namenda XR 7 mg p.o. daily. 5. Synthroid 25 mcg a day. 6. Neurontin 200 mg at night, 300 mg in the morning. 7. Fish oil 400 mg a day. 8. Prozac 10 mg a day. 9. Vitamin D2 fifty thousand units p.o. Monday and Monday. 10.Ceftin 500 mg b.i.d. 11.Rocaltrol 0.25 mcg p.o. every 7 days. 12.Aspirin 81 mg q.h.s. 13.Aricept 10 mg q.h.s. ALLERGIES: None. PHYSICAL EXAMINATION: Afebrile, pulse 66, respiration 18, blood pressure 104/78, pulse ox 100% on room air. GENERAL APPEARANCE: Sitting on bed, comfortable. EYES: Pupils equal, conjunctivae normal. HEENT: External appearance of nose and ear normal. Oral cavity normal. NECK: JVD not raised. Mass not palpable. RESPIRATORY: Effort normal. Lungs are clear. CARDIOVASCULAR: First and second sounds normal. No edema. ABDOMEN: Soft, nontender. Liver and spleen not palpable. PSYCHIATRY: Patient able to answer simple questions. Does not know exactly where she is, the year or the month. NEUROLOGICAL: Pupils equal. Cranial nerves grossly intact. Power and sensation grossly intact. INVESTIGATIONS: White count 7.5, hemoglobin 11.7, potassium 3.5, bicarb 17, creatinine 1.6. UA positive for leukocyte esterase. ASSESSMENT: 1. Acute delirium, probably from underlying urinary tract infection. 2. 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 3. Chronic kidney disease stage III, from chronic nephrolithiasis. 4. Bilateral nephrolithiasis, asymptomatic. 5. Metabolic acidosis from renal failure. PLAN: Patient is given IV ceftriaxone. Feeling better. She had some flank pain according to , which is greatly improved. Patient will be switched to ciprofloxacin. Patient has been very cooperative. Tolerating a diet. Will be sent back to the [facility]. Discharge medications as above, except instead of Ceftin will be using ciprofloxacin 250 mg a day for 5 days. DISPOSITION: [facility]. Follow up with Dr. Bustillo. Care was discussed with the patient's . This is both a history and physical and discharge summary. MMODL / IJN: [id number] /
[2018-05-04] MEDS ORDERED: DONEPEZIL 10 MG TAB PO SCH (21:00)
[2018-05-04] MEDS ORDERED: LEVOTHYROXINE 25 MCG TAB PO SCH (21:00)
[2018-05-04] MEDS ORDERED: ASPIRIN 81 MG PO SCH (21:00)
[2018-05-04] MEDS ORDERED: cefTRIAXone IN SWFI 1,000 MG/10 ML SYRINGE IVP SCH (22:00)
[2018-05-05] MEDS ORDERED: MEMANTINE 5 MG TAB PO SCH (09:00)
[2018-05-05] MEDS ORDERED: FLUoxetine HCL 10 MG CAP PO SCH (09:00)
== END 2018-05-04 15:07 | DRG 690 ==
LOC: EC 18:45 → 4MS4W 05-04 01:15
PROVIDERS: ADMIT Hospitalist; ATTEND Hospitalist
DX: N39.0 Urinary tract infection, site not specified (principal); E87.2 Acidosis; I12.9 Hypertensive chronic kidney disease with stage 1 through stage 4 chronic kidney disease, or unspecified chronic kidney disease; N18.3 Chronic kidney disease, stage 3 (moderate); G30.9 Alzheimer's disease, unspecified; E03.9 Hypothyroidism, unspecified; F02.80 Dementia in other diseases classified elsewhere, unspecified severity, without behavioral disturbance, psychotic disturbance, mood disturbance, and anxiety; M79.7 Fibromyalgia; N20.0 Calculus of kidney; D64.9 Anemia, unspecified; Z90.710 Acquired absence of both cervix and uterus; Z90.49 Acquired absence of other specified parts of digestive tract; Z87.891 Personal history of nicotine dependence; Z82.5 Family history of asthma and other chronic lower respiratory diseases; Z79.890 Hormone replacement therapy; Z79.82 Long term (current) use of aspirin; Z79.899 Other long term (current) drug therapy
CPT/HCPCS: 36415; 71046; 80053; 81001; 82150; 82550; 82553; 83690; 84484; 85025; 87040; 93005; 96361; 96374; 99285

== ENCOUNTER 2018-05-28 01:57 | Emergency (ER) | payer MEDICARE, OTHER ==
[2018-05-28] MEDS ORDERED: ZINC OXIDE 20% OINT 28.4 GM TUBE TOPICAL STA (02:49)
[2018-05-28 02:57] LABS: Basophils # (A) 0.1 k/uL (0-0.2); Basophils % (A) 1 %; Eosinophils # (A) 0.2 k/uL (0-0.7); Eosinophils % (A) 2 %; HCT 33.7 % (34.0-46.0); HGB 11.4 gm/dL (11.4-16.0); Lymphocytes # (A) 1.9 k/uL (1.0-4.8); Lymphocytes % (A) 26 %; MCH 33.3 pg (25.0-35.0); MCHC 33.7 g/dL (31.0-37.0); MCV 98.6 fL (80.0-100.0); Macrocytosis Slight; Mean Platelet Volume 6.6; Monocytes # (A) 0.4 k/uL (0-1.0); Monocytes % (A) 5 %; Neutrophils # (A) 4.8 k/uL (1.3-7.7); Neutrophils % (A) 65 %; Platelet Count 247 k/uL (150-450); Poikilocytosis Slight; RBC 3.42 m/uL (3.80-5.40); RDW 15.9 % (11.5-15.5); WBC 7.3 k/uL (3.8-10.6)
[2018-05-28 03:06] LABS: Calcium 8.7 mg/dL (8.4-10.2)
--- NOTE | 2018-05-28 03:55 | ED ---
General Adult HPI - General Chief complaint: Urogenital Stated complaint: Possible UTI Time Seen by Provider: 05/28/18 02:25 Source: patient, family Mode of arrival: ambulatory Limitations: altered mental status - History of Present Illness Initial comments: This patient is 63-year-old woman who presents with 2 main complaints. The major one for her is that she is having a rash that is burning and itching and located in the groin area. The second complaint is of epigastric burning type pain which does seem to be worse with meals. -: days(s) Location: abdomen Radiation: non-radiation Quality: burning Consistency: constant Improves with: none Worsens with: eating Associated Symptoms: rash Treatments Prior to Arrival: none - Related Data Home Medications Medication Instructions Recorded Confirmed Ergocalciferol [Vitamin D2 50,000 unit PO TUFR 03/14/14 05/03/18 (DRISDOL)] Gabapentin [Neurontin] 300 mg PO QAM 03/14/14 05/03/18 Levothyroxine Sodium [Synthroid] 25 mcg PO HS 03/14/14 05/03/18 Donepezil [Aricept] 10 mg PO HS 06/24/15 05/03/18 Gabapentin [Neurontin] 200 mg PO HS 06/24/15 05/03/18 Multivit-Min/FA/Lycopene/Lut 1 tab PO DAILY 06/24/15 05/03/18 [Centrum Silver Tablet] Calcitriol [Rocaltrol] 0.25 mcg PO Q7D 02/21/18 05/03/18 FLUoxetine HCL [PROzac] 10 mg PO DAILY 02/21/18 05/03/18 Fish Oil 1400mg 1 cap PO DAILY 02/21/18 05/03/18 Memantine HCl [Namenda Xr] 7 mg PO DAILY 02/21/18 05/03/18 ALPRAZolam [Xanax] 0.25 mg PO Q8HR PRN 05/03/18 05/03/18 Aspirin EC [Ecotrin Low Dose] 81 mg PO HS 05/03/18 05/03/18 Previous Rx's Medication Instructions Recorded Ciprofloxacin HCl [Cipro] 250 mg PO Q12HR #10 tablet 05/04/18 traMADol HCL [Ultram ER] 100 mg PO DAILY PRN #3 tab.er.24h 05/04/18 Famotidine [Pepcid] 20 mg PO BID #14 tablet 05/28/18 Allergies Allergy/AdvReac Type Severity Reaction Status Date / Time No Known Allergies Allergy Verified 05/28/18 02:07 Review of Systems ROS Statement: Those systems with pertinent positive or pertinent negative responses have been documented in the HPI. ROS Other: All systems not noted in ROS Statement are negative. Constitutional: Denies: fever, chills Respiratory: Denies: cough, dyspnea Cardiovascular: Denies: chest pain, palpitations, dyspnea on exertion Gastrointestinal: Reports: as per HPI, abdominal pain, nausea. Denies: vomiting , diarrhea Genitourinary: Denies: dysuria, hematuria Musculoskeletal: Denies: back pain Skin: Reports: rash Neurological: Denies: headache, weakness, numbness Past Medical History Past Medical History: Dementia, Fibromyalgia, Hypertension, Memory Impairment, Osteoarthritis (OA), Thyroid Disorder Additional Past Medical History / Comment(s): Crohns, KIDNEY STONE, ANEMIA, ACUTE per pt's spouse pt had "broken heart syndrome in past", uti, past stress test History of Any Multi-Drug Resistant Organisms: None Reported Past Surgical History: Adenoidectomy, Bowel Resection, Cholecystectomy, Heart Catheterization, Hysterectomy, Tonsillectomy, Tubal Ligation Additional Past Surgical History / Comment(s): Gallblader (FEBRUARY 2014 [facility]), Bowel Resection d/t [id number], SMALL BOWEL CAPSULE ENDOSCOPY, several COLONOSCOCPY. Past Anesthesia/Blood Transfusion Reactions: No Reported Reaction Past Psychological History: Depression Smoking Status: Former smoker Past Alcohol Use History: None Reported Past Drug Use History: None Reported - Past Family History Mother History Unknown: Yes Father History Unknown: Yes Sister(s) Family Medical History: Asthma Additional Family Medical History / Comment(s): Passed on from asthma attack General Exam Limitations: altered mental status General appearance: alert, in no apparent distress Head exam: Present: atraumatic Respiratory exam: Present: normal lung sounds bilaterally. Absent: respiratory distress, wheezes, rales, rhonchi, stridor Cardiovascular Exam: Present: regular rate, normal rhythm, normal heart sounds. Absent: systolic murmur, diastolic murmur, rubs, gallop GI/Abdominal exam: Present: soft. Absent: distended, tenderness, guarding, rebound, rigid Extremities exam: Present: normal inspection, normal capillary refill. Absent: pedal edema, calf tenderness Neurological exam: Present: alert Skin exam: Present: warm, dry, rash (Dermatitis present), erythema Course Vital Signs 05/28/18 05/28/18 05/28/18 02:02 04:11 04:58 Temperature 98.1 F Pulse Rate 58 L 51 L 70 Respiratory 16 17 18 Rate Blood Pressure 125/82 112/65 118/68 O2 Sat by Pulse 100 96 100 Oximetry 05/28/18 05/28/18 06:05 07:00 Temperature 97.8 F Pulse Rate 53 L 50 L Respiratory 18 18 Rate Blood Pressure 118/66 116/66 O2 Sat by Pulse 100 100 Oximetry Medical Decision Making - Lab Data Result diagrams: 05/28/18 02:30 05/28/18 02:30 Lab Results 05/28/18 05/28/18 05/28/18 Range/Units 02:30 02:30 05:52 WBC 7.3 (3.8-10.6) k/uL RBC 3.42 L (3.80-5.40) m/uL Hgb 11.4 (11.4-16.0) gm/dL Hct 33.7 L (34.0-46.0) % MCV 98.6 (80.0-100.0) fL MCH 33.3 (25.0-35.0) pg MCHC 33.7 (31.0-37.0) g/dL RDW 15.9 H (11.5-15.5) % Plt Count 247 (150-450) k/uL Neutrophils % 65 % Lymphocytes % 26 % Monocytes % 5 % Eosinophils % 2 % Basophils % 1 % Neutrophils # 4.8 (1.3-7.7) k/uL Lymphocytes # 1.9 (1.0-4.8) k/uL Monocytes # 0.4 (0-1.0) k/uL Eosinophils # 0.2 (0-0.7) k/uL Basophils # 0.1 (0-0.2) k/uL Poikilocytosis Slight Macrocytosis Slight Sodium 140 (137-145) mmol/L Potassium 4.0 (3.5-5.1) mmol/L Chloride 117 H (98-107) mmol/L Carbon Dioxide 17 L (22-30) mmol/L Anion Gap 6 mmol/L BUN 15 (7-17) mg/dL Creatinine 1.90 H (0.52-1.04) mg/dL Est GFR (CKD-EPI)AfAm 32 (>60 ml/min/1.73 sqM) Est GFR (CKD-EPI)NonAf 28 (>60 ml/min/1.73 sqM) Glucose 92 (74-99) mg/dL Calcium 8.7 (8.4-10.2) mg/dL Urine Color Yellow Urine Appearance Clear (Clear) Urine pH 5.5 (5.0-8.0) Ur Specific [place] 1.011 (1.001-1.035) Urine Protein Trace H (Negative) Urine Glucose (UA) Negative (Negative) Urine Ketones Negative (Negative) Urine Blood Small H (Negative) Urine Nitrite Negative (Negative) Urine Bilirubin Negative (Negative) Urine Urobilinogen <2.0 (<2.0) mg/dL Ur Leukocyte Esterase Negative (Negative) Urine RBC 10 H (0-5) /hpf Urine WBC 1 (0-5) /hpf Urine Bacteria Rare H (None) /hpf Disposition Clinical Impression: Dermatitis, Gastroenteritis Disposition: HOME SELF-CARE Condition: Poor Instructions: Gastroenteritis (ED), Dermatitis (ED) Prescriptions: Famotidine [Pepcid] 20 mg PO BID #14 tablet Is patient prescribed a controlled substance at d/c from ED?: No Referrals: Omar Bustillo DO [Primary Care Provider] - 1-2 days
[2018-05-28 05:00] VITALS: RESP 18
[2018-05-28 06:06] VITALS: TEMP 97.8
--- NOTE | 2018-05-28 06:14 | CT ---
EXAM: CT Abdomen and Pelvis Without Intravenous Contrast CLINICAL HISTORY: Hx. of cholecystectomy, tubal ligation, bowel resection, hysterectomy, Crohn's disease. Pt. c/o abdominal pain; possible UTI TECHNIQUE: Axial computed tomography images of the abdomen and pelvis without intravenous contrast. CTDI is 8.50 mGy and DLP is 401.70 mGy-cm. This CT exam was performed using one or more of the following dose reduction techniques: automated exposure control, adjustment of the mA and/or kV according to patient size, and/or use of iterative reconstruction technique. COMPARISON: 04/29/2014. FINDINGS: Lung bases: Mild bibasilar atelectasis. 3 mm calcified granuloma in the right lower lobe. ABDOMEN: Liver: Unremarkable. Gallbladder and bile ducts: Patient status post cholecystectomy. No ductal dilation. Pancreas: Unremarkable. No ductal dilation. Spleen: Spleen is at upper limits of normal, measuring up to 13 cm in greatest dimension, of unknown significance. Adrenals: Unremarkable. Kidneys and ureters: Bilateral atrophic kidneys. 2 cm nonobstructing stone is seen in the lower pole the right kidney. Additional smaller nonobstructing stones are seen throughout both kidneys. Stomach and bowel: Evaluation of the bowel is limited without the use of oral IV contrast material. Within this limitation, wall thickening versus underdistention of the stomach and duodenum raises concern for infectious versus inflammatory gastroduodenitis. Ulcer disease would be included in differential. Fluid is also seen throughout the small bowel, which may represent infectious versus inflammatory enteritis in the correct clinical setting. Patient appears to be status post right hemicolectomy. Surgical clips are noted by the GE junction, as seen on prior study. PELVIS: Appendix: See above. Bladder: Distended urinary bladder. Questionable wall thickening. No stones. Reproductive: Patient status post hysterectomy. ABDOMEN and PELVIS: Intraperitoneal space: No evidence of intra-abdominal free air. No significant fluid collection. Bones/joints: Grade 1 anterolisthesis of L3 on L4 is noted. No acute fracture. No dislocation. Soft tissues: Postoperative changes involving the anterior abdominal wall. Vasculature: Unremarkable. No abdominal aortic aneurysm. Lymph nodes: Mildly prominent mesenteric lymph nodes are likely reactive and suboptimally evaluated on this noncontrast study. IMPRESSION: 1. Limited evaluation of the bowel without the use of oral or IV contrast material. Wall thickening versus underdistention of the stomach and duodenum raises concern for infectious versus inflammatory gastroduodenitis. Ulcer disease would be included in differential. Fluid is also seen throughout the small bowel, which may represent infectious versus inflammatory enteritis in the correct clinical setting. 2. Bilateral nonobstructive nephrolithiasis. 3. Distended urinary bladder. Questionable wall thickening. Correlate with urinalysis to evaluate for cystitis.
[2018-05-28 06:28] LABS: Appearance,Urine Clear (Clear); Bacteria,Urine Rare /hpf; Bilirubin,Urine Negative (Negative); Blood,Urine Small (Negative); Color,Urine Yellow; Glucose,Urine (UA) Negative (Negative); Ketones,Urine Negative (Negative); Leukocyte Esterase,Urine Negative (Negative); Nitrite,Urine Negative (Negative); PH, Urine 5.5 (5.0-8.0); Protein,Urine Trace (Negative); RBC,Urine 10 /hpf (0-5); Specific Gravity,Urine 1.011 (1.001-1.035); Urobilinogen,Urine <2.0 mg/dL (<2.0); WBC,Urine 1 /hpf (0-5)
[2018-05-28] MEDS ORDERED: FAMOTIDINE 20 MG/2 ML VIAL IV STA (06:43)
[2018-05-28 07:01] VITALS: BP 116/66; PULSE 50
== END 2018-05-28 07:01 | disposition home or self-care (01) ==
LOC: EC 01:57
DX: K52.9 Noninfective gastroenteritis and colitis, unspecified (principal); L30.9 Dermatitis, unspecified; F03.90 Unspecified dementia, unspecified severity, without behavioral disturbance, psychotic disturbance, mood disturbance, and anxiety; I10 Essential (primary) hypertension; D64.9 Anemia, unspecified; F32.9 Major depressive disorder, single episode, unspecified; Z87.891 Personal history of nicotine dependence; Z79.82 Long term (current) use of aspirin; Z79.899 Other long term (current) drug therapy; Z95.818 Presence of other cardiac implants and grafts; Z90.49 Acquired absence of other specified parts of digestive tract; Z90.710 Acquired absence of both cervix and uterus
CPT/HCPCS: 36415; 51701; 74176; 80048; 81001; 85025; 96374; 99284

== ENCOUNTER 2018-07-27 00:20 | Inpatient (IN) | payer MEDICARE, OTHER ==
[2018-07-27] MEDS ORDERED: HALOPERIDOL LACTATE 5 MG/ML 1 ML VIAL IM STA (00:23)
[2018-07-27] MEDS ORDERED: LORazepam 2 MG/ML INJ IM STA (00:23)
[2018-07-27] MEDS ORDERED: diphenhydrAMINE 50 MG/ML 1 ML VIAL IM STA (00:23)
[2018-07-27 01:03] LABS: Basophils % (A) 1 %; Eosinophils # (A) 0.2 k/uL (0-0.7); Eosinophils % (A) 3 %; HCT 33.9 % (34.0-46.0); HGB 11.3 gm/dL (11.4-16.0); Lymphocytes # (A) 1.6 k/uL (1.0-4.8); Lymphocytes % (A) 24 %; MCH 34.8 pg (25.0-35.0); MCHC 33.3 g/dL (31.0-37.0); MCV 104.6 fL (80.0-100.0); Macrocytosis Moderate; Mean Platelet Volume 6.9; Monocytes # (A) 0.3 k/uL (0-1.0); Monocytes % (A) 5 %; Neutrophils # (A) 4.4 k/uL (1.3-7.7); Neutrophils % (A) 67 %; Platelet Count 209 k/uL (150-450); RBC 3.24 m/uL (3.80-5.40); RDW 15.7 % (11.5-15.5); WBC 6.6 k/uL (3.8-10.6)
[2018-07-27 01:14] LABS: Calcium 8.3 mg/dL (8.4-10.2); Potassium 3.8 mmol/L (3.5-5.1); Total Bilirubin 0.4 mg/dL (0.2-1.3); Total Protein 5.5 g/dL (6.3-8.2)
[2018-07-27 01:16] LABS: Appearance,Urine Cloudy (Clear); Bacteria,Urine Many /hpf; Bilirubin,Urine Negative (Negative); Blood,Urine Negative (Negative); Color,Urine Yellow; Glucose,Urine (UA) Negative (Negative); Ketones,Urine Negative (Negative); Leukocyte Esterase,Urine Large (Negative); Nitrite,Urine Positive (Negative); PH, Urine 5.5 (5.0-8.0); Protein,Urine 1+ (Negative); RBC,Urine 1 /hpf (0-5); Specific Gravity,Urine 1.012 (1.001-1.035); Squamous Epithelial Cell,Urine <1 /hpf (0-4); Urobilinogen,Urine <2.0 mg/dL (<2.0); WBC,Urine 76 /hpf (0-5)
[2018-07-27] MEDS ORDERED: NALOXONE 0.4 MG/ML 1 ML VIAL IV PRN (01:31)
[2018-07-27] MEDS ORDERED: LORazepam 2 MG/ML INJ IV PRN (01:31)
--- NOTE | 2018-07-27 01:43 | ED ---
General Adult HPI - General Chief complaint: Recheck/Abnormal Lab/Rx Stated complaint: Mental health Time Seen by Provider: 07/27/18 00:23 Source: patient, family, EMS Mode of arrival: EMS Limitations: altered mental status - History of Present Illness Initial comments: Brenda is a 63-year-old female who presents the emergency department today via EMS from her longterm facility for evaluation of acute agitation. EMS reports that they were called to the facility because the patient was agitated and fighting with staff. They report that they required police assistance to get the patient into the ambulance. She has been combative and striking EMS personnel during transport. They were unable to obtain vital signs with patient remained awake and alert screaming at them had a patent airway and was in no acute medical distress. Patient is unable to provide any meaningful history. She is agitated and crying. Screaming out for people to leave her alone. Asking for her Kirill. The patient's Kirill arrived at bedside shortly after the patient's arrival. He states that the patient had been in a good state of health throughout the day today. He states that he took her out of the [facility] and that they went out to lunch to the [employer] and that she ate a good lunch and was doing quite well today. He states that he took her back to the [facility] and she was given her night medications which included Seroquel. Kirill states that Seroquel is a new medication just prescribed this week and he feels like it may be making her agitated. Kirill reports that around 11 PM Brenda was asleep and so he left the facility go home and get some sleep himself. He got a call around 12:00 that she had woke up and was very agitated screaming out and unable to be calmed. Kirill also states the patient was recently treated for a urinary tract infection. He cannot recall what antibiotic which she was on but reports that she completed her antibiotic on Monday of this week. He states in the past she has become acutely agitated with urinary tract infections. Most recently this occurred in April of this year. - Related Data Home Medications Medication Instructions Recorded Confirmed Ergocalciferol [Vitamin D2 50,000 unit PO TUFR 03/14/14 07/27/18 (DRISDOL)] Gabapentin [Neurontin] 300 mg PO QAM 03/14/14 07/27/18 Levothyroxine Sodium [Synthroid] 25 mcg PO HS 03/14/14 07/27/18 Gabapentin [Neurontin] 200 mg PO HS 06/24/15 07/27/18 Multivit-Min/FA/Lycopene/Lut 1 tab PO DAILY 06/24/15 07/27/18 [Centrum Silver Tablet] Calcitriol [Rocaltrol] 0.25 mcg PO Q7D 02/21/18 07/27/18 FLUoxetine HCL [PROzac] 20 mg PO DAILY 02/21/18 07/27/18 Fish Oil 1400mg 1 cap PO DAILY 02/21/18 07/27/18 Memantine HCl [Namenda Xr] 14 mg PO DAILY 02/21/18 07/27/18 ALPRAZolam [Xanax] 0.25 mg PO Q8HR PRN 05/03/18 05/03/18 Aspirin EC [Ecotrin Low Dose] 81 mg PO HS 05/03/18 07/27/18 Diphenoxylate HCl/Atropine 1 tab PO Q6HR PRN 07/27/18 07/27/18 [Lomotil 2.5-0.025 mg Tablet] Phenyleph/Pramoxin/Glycr/W.pet 1 applic RECTAL PRN 07/27/18 07/27/18 [Preparation H Cream] Potassium Chloride ER [K-Dur 20] 20 meq PO BID 07/27/18 07/27/18 QUEtiapine [SEROquel] 25 mg PO BID 07/27/18 07/27/18 S.boulardii/B.coagulans/Fos 471 mg PO 07/27/18 07/27/18 [Diff-Stat 471 mg Capsule] Sodium Bicarbonate 325 mg PO BID 07/27/18 07/27/18 Zinc Oxide [Desitin] 1 applic TOPICAL BID 07/27/18 07/27/18 traMADol HCL [Ultram ER] 100 mg PO Q8HR PRN 07/27/18 07/27/18 traMADol HCL [Ultram] 100 mg PO Q8HR PRN 07/27/18 07/27/18 Previous Rx's Medication Instructions Recorded Famotidine [Pepcid] 20 mg PO BID #14 tablet 05/28/18 Allergies Allergy/AdvReac Type Severity Reaction Status Date / Time No Known Allergies Allergy Verified 07/27/18 00:40 Review of Systems ROS Statement: Those systems with pertinent positive or pertinent negative responses have been documented in the HPI. ROS Other: All systems not noted in ROS Statement are negative. Limitations: ROS unobtainable due to patients medical condition Past Medical History Past Medical History: Dementia, Fibromyalgia, Hypertension, Memory Impairment, Osteoarthritis (OA), Thyroid Disorder Additional Past Medical History / Comment(s): Crohns, KIDNEY STONE, ANEMIA, ACUTE per pt's spouse pt had "broken heart syndrome in past", uti, past stress test. UTI. History of Any Multi-Drug Resistant Organisms: None Reported Past Surgical History: Adenoidectomy, Bowel Resection, Cholecystectomy, Heart Catheterization, Hysterectomy, Tonsillectomy, Tubal Ligation Additional Past Surgical History / Comment(s): Gallblader (FEBRUARY 2014 [facility]), Bowel Resection d/t [id number], SMALL BOWEL CAPSULE ENDOSCOPY, several COLONOSCOCPY. Past Anesthesia/Blood Transfusion Reactions: No Reported Reaction Past Psychological History: Depression Smoking Status: Former smoker Past Alcohol Use History: None Reported Past Drug Use History: None Reported - Past Family History Mother History Unknown: Yes Father History Unknown: Yes Sister(s) Family Medical History: Asthma Additional Family Medical History / Comment(s): Passed on from asthma attack General Exam - General Exam Comments Initial Comments: GENERAL: Patient sitting up on the stretcher, agitated, screaming, striking out at staff Patient is well-developed and well-nourished. Patient is nontoxic and well- hydrated . HENT: Normocephalic, Atraumatic. EYES: The sclera were anicteric and conjunctiva were pink and moist. PERRL, EOMI PULMONARY: Unlabored respirations. Good breath sounds bilaterally. No audible rales rhonchi or wheezing was noted. CARDIOVASCULAR: Tachycardia, regular ABDOMEN: Soft and nontender with normal bowel sounds. SKIN: Skin is clear with no lesions or rashes and otherwise unremarkable. NEUROLOGIC: Oriented to self, aware she is in the hospital though cannot identify where or why, recognizes MUSCULOSKELETAL: Normal extremities with adequate strength and full range of motion. No lower extremity swelling or edema. No calf tenderness. LYMPHATICS: No significant lymphadenopathy is noted PSYCHIATRIC: Agitated Limitations: no limitations Limitations: altered mental status Course Vital Signs 07/27/18 00:31 Temperature 97.4 F L Pulse Rate 104 H Respiratory 20 Rate Blood Pressure 133/84 O2 Sat by Pulse 97 Oximetry Medical Decision Making - Medical Decision Making Patient was seen and evaluated immediately upon arrival to the emergency department. Patient was noted to be acutely agitated. Fighting with staff. A previous EKG was reviewed. Patient has no QT prolongation. Haldol was ordered for agitation. Patient's arrived at bedside, was able to calm the patient somewhat and was agreeable to plan for IM medication for agitation Patient with recent medication change, Seroquel was introduced on Monday of this weekend has been expresses concern this may be making her more agitated at night Also recently treated for urinary tract infection, completed antibiotics on Monday or Monday. Does have a history of acute delirium with urinary tract infections in the past. Labs are at the patient's baseline, chronic kidney disease. Urinalysis suggestive of a urinary tract infection Culture was obtained Review his cultures were reviewed. Culture last week revealed Klebsiella pneumonia pants susceptible. IV Rocephin was ordered. This is a demented 63-year-old female with a urinary tract infection, acute delirium in the setting of a recent medication change. There is multiple possibilities for her cause of delirium. At this time and do feel the patient would be safest if admitted to our facility for further evaluation. and is in agreement with this plan. Admission orders were placed. - Lab Data Result diagrams: 07/27/18 00:51 07/27/18 00:51 Lab Results 07/27/18 07/27/18 07/27/18 Range/Units 00:51 00:51 01:00 WBC 6.6 (3.8-10.6) k/uL RBC 3.24 L (3.80-5.40) m/uL Hgb 11.3 L (11.4-16.0) gm/dL Hct 33.9 L (34.0-46.0) % MCV 104.6 H (80.0-100.0) fL MCH 34.8 (25.0-35.0) pg MCHC 33.3 (31.0-37.0) g/dL RDW 15.7 H (11.5-15.5) % Plt Count 209 (150-450) k/uL Neutrophils % 67 % Lymphocytes % 24 % Monocytes % 5 % Eosinophils % 3 % Basophils % 1 % Neutrophils # 4.4 (1.3-7.7) k/uL Lymphocytes # 1.6 (1.0-4.8) k/uL Monocytes # 0.3 (0-1.0) k/uL Eosinophils # 0.2 (0-0.7) k/uL Basophils # 0.0 (0-0.2) k/uL Macrocytosis Moderate Sodium 141 (137-145) mmol/L Potassium 3.8 (3.5-5.1) mmol/L Chloride 119 H (98-107) mmol/L Carbon Dioxide 15 L (22-30) mmol/L Anion Gap 7 mmol/L BUN 13 (7-17) mg/dL Creatinine 1.51 H (0.52-1.04) mg/dL Est GFR (CKD-EPI)AfAm 42 (>60 ml/min/1.73 sqM) Est GFR (CKD-EPI)NonAf 36 (>60 ml/min/1.73 sqM) Glucose 110 H (74-99) mg/dL Calcium 8.3 L (8.4-10.2) mg/dL Total Bilirubin 0.4 (0.2-1.3) mg/dL AST 18 (14-36) U/L ALT 17 (9-52) U/L Alkaline Phosphatase 71 (38-126) U/L Total Protein 5.5 L (6.3-8.2) g/dL Albumin 3.0 L (3.5-5.0) g/dL Urine Color Yellow Urine Appearance Cloudy H (Clear) Urine pH 5.5 (5.0-8.0) Ur Specific [place] 1.012 (1.001-1.035) Urine Protein 1+ H (Negative) Urine Glucose (UA) Negative (Negative) Urine Ketones Negative (Negative) Urine Blood Negative (Negative) Urine Nitrite Positive H (Negative) Urine Bilirubin Negative (Negative) Urine Urobilinogen <2.0 (<2.0) mg/dL Ur Leukocyte Esterase Large H (Negative) Urine RBC 1 (0-5) /hpf Urine WBC 76 H (0-5) /hpf Urine WBC Clumps Few H (None) /hpf Ur Squamous Epith Cells <1 (0-4) /hpf Urine Bacteria Many H (None) /hpf Disposition Clinical Impression: Advanced dementia, Delirium, Urinary tract infection, Medication reaction Disposition: ADMITTED IP TO THIS HOSP Referrals: Omar Bustillo DO [Primary Care Provider] - 1-2 days
[2018-07-27] MEDS: FLUoxetine HCL 10 MG CAP PO SCH (08:29)
[2018-07-27] MEDS ORDERED: MEMANTINE 5 MG TAB PO SCH (09:00)
[2018-07-27] MEDS ORDERED: FAMOTIDINE 20 MG TAB PO SCH (09:00)
[2018-07-27] MEDS ORDERED: TRAMADOL HCL 100 MG PO PRN (15:07)
[2018-07-27] MEDS ORDERED: traMADol 50 MG TAB PO PRN (15:07)
[2018-07-27] MEDS: QUEtiapine 25 MG TAB PO SCH (20:49)
[2018-07-27] MEDS: ASPIRIN 81 MG PO SCH (20:49)
[2018-07-27] MEDS: POTASSIUM CHLORIDE ER 20 MEQ TAB.ER PO SCH (20:49)
[2018-07-27] MEDS: SODIUM BICARBONATE TAB 650 MG TAB PO SCH ×2 (20:50→20:53)
[2018-07-27] MEDS: ZINC OXIDE 20% OINT 28.4 GM TUBE TOPICAL SCH (20:53)
[2018-07-27] MEDS ORDERED: LEVOTHYROXINE 25 MCG TAB PO SCH (21:00)
[2018-07-27] MEDS ORDERED: SODIUM BICARBONATE TAB 650 MG TAB PO SCH (21:00)
[2018-07-27] MEDS: GABAPENTIN 100 MG CAP PO SCH (21:11)
--- NOTE | 2018-07-27 21:11 | HP ---
HISTORY AND PHYSICAL DATE OF SERVICE: 07/27/18. PRESENT COMPLAINT: Acute agitation. HISTORY OF PRESENTING COMPLAINT: This is a 63-year-old patient who is a resident of [facility] being followed by Dr. Bustillo. Has advanced dementia. The patient is able to answer simple questions but often times is confused, was in the hospital couple of months ago at that time had a UTI. The patient about 2-3 days ago was started on Seroquel and patient has been sleeping more in the daytime. Yesterday patient became agitated, hitting ordered staff and decided to bring the patient in and patient was given in the ER Haldol, Ativan, Benadryl, and also some Ativan. The patient eventually calmed down and settled. The patient also was found to have a UTI and given ceftriaxone. The patient herself is not able to give any history. Most of the history is obtained by the ER notes, staff, and patient's who is present with her who visits her regularly in the [facility]. The patient has got a fair appetite and able to walk about. REVIEW OF SYSTEMS: CONSTITUTIONAL: None. HEENT: None. RESPIRATORY: None. CARDIOVASCULAR: None. GASTROINTESTINAL: None. GENITOURINARY: None. MUSCULOSKELETAL: None. DERMATOLOGICAL, HEMATOLOGIC, LYMPHATIC: None. PSYCHIATRY: Forgetful, confused. NEUROLOGICAL: None. PAST MEDICAL HISTORY: Crohn's disease, takotsubo syndrome, Alzheimer's dementia, hypothyroid, fibromyalgia, kidney stones. PAST SURGICAL HISTORY: Adenoidectomy, bowel resection, cholecystectomy, cardiac cath, hysterectomy, tonsillectomy, tubal ligation, multiple bowel surgeries by Dr. Jiménez, small bowel capsule endoscopy, several colonoscopies. PSYCH HISTORY: Alzheimer's dementia, depression. SOCIAL HISTORY: Patient smoked a pack and a half, stopped in . No alcohol, , resident of [facility]. FAMILY HISTORY: Asthma. PHYSICAL EXAMINATION: Vital signs on presentation: Temperature 97.4, pulse 104, respiratory 20, blood pressure 133/84, pulse ox 97% on room air. GENERAL APPEARANCE: Average built, sitting up. Somewhat blank appearing. EYES: Pupils equal. Conjunctivae normal. HEENT: External appearance of nose and ears normal. Oral [id number] normal. NECK: JVD not raised. Mass not palpable. RESPIRATORY: Effort normal. Lungs fair entry. CARDIOVASCULAR: First and second sounds, no edema. ABDOMEN: Soft, nontender. Liver and spleen not palpable. LYMPHATIC: No lymph node palpable in neck or axillae. PSYCHIATRY: Patient may know her name, but does not know why she is here or give any collateral answers. NEUROLOGICAL: Pupils equal. No facial asymmetry. Moving all 4 limbs. INVESTIGATIONS: White count 6.6, hemoglobin 11.3, potassium 3.8, chloride 119, bicarb 15, BUN 13, creatinine 1.51. The patient's creatinine was 1.72 on 05/04/18. Albumin 3. UA positive for nitrite, leukocyte esterase, WBC. ASSESSMENT: 1. Acute delirium from underlying urinary tract infection. 2. Major neurocognitive disorder from underlying advanced Alzheimer's dementia, early onset type, with some psychosis. 3. Chronic kidney disease stage III from nephrosclerosis. 4. Bilateral nephrolithiasis asymptomatic. 5. Metabolic acidosis from renal failure. 6. Normocytic anemia likely from anemia of chronic kidney disease. 7. Hypoalbuminemia, mild, probably from mild protein-calorie malnutrition. PLAN: Patient for the UTI was started on IV ceftriaxone. We will keep the patient's Seroquel at 25 mg at night and decrease the morning dose to 12.5. Sleep hygiene was initiated and discussed with the and the nursing staff where patient to be allowed to take a nap in the afternoon and then allowed to go to sleep up after 9 o'clock after getting Seroquel and not to be woken up at night but kept a close eye on the same. Care was discussed in detail with the patient's . Also bicarb supplementation will be increased because of her metabolic acidosis. The patient's TSH should be more around 2.5 and is 1.4. I do not think she is really hypothyroid clinically and that may be contributing to her agitation. We will stop the same. Also given the patient's advanced dementia, I do not believe Namenda is of any benefit and will be adding more side effects; hence, will discontinue the same. Will watch the patient for next 24-48 hours and make a settle on the current medications and go from there. The patient will be followed closely. MMODL / IJN: [id number] /
[2018-07-28] MEDS: QUEtiapine 25 MG TAB PO SCH ×2 (10:45→21:19)
[2018-07-28] MEDS: SODIUM BICARBONATE TAB 650 MG TAB PO SCH ×5 (10:45→21:20)
[2018-07-28] MEDS: FAMOTIDINE 20 MG TAB PO SCH (10:45)
[2018-07-28] MEDS: FLUoxetine HCL 10 MG CAP PO SCH (10:46)
[2018-07-28] MEDS: POTASSIUM CHLORIDE ER 20 MEQ TAB.ER PO SCH ×2 (10:46→21:18)
[2018-07-28] MEDS: GABAPENTIN 300 MG CAP PO SCH (10:47)
[2018-07-28] MEDS: ZINC OXIDE 20% OINT 28.4 GM TUBE TOPICAL SCH ×2 (12:21→21:20)
[2018-07-28] MEDS: GABAPENTIN 100 MG CAP PO SCH (21:18)
[2018-07-28] MEDS: ASPIRIN 81 MG PO SCH (21:19)
[2018-07-29] MEDS: PSYLLIUM HUSK 100% 6 GM PACKET PO SCH ×3 (00:09→21:51)
[2018-07-29] MEDS: SODIUM BICARBONATE TAB 650 MG TAB PO SCH ×4 (00:09→21:52)
--- NOTE | 2018-07-29 04:52 | PN ---
PROGRESS NOTE DATE OF SERVICE: July 28, 2018. PRESENTING COMPLAINT: Acute agitation. INTERVAL HISTORY: This patient presented with acute delirium from underlying UTI. The patient also has got major neurocognitive disorder. Dose of Seroquel was adjusted yesterday. Also the patient's Namenda was discontinued, so was Synthroid. The patient is sitting in his room, tolerating a diet. Did sleep well last night. The patient also got chronic diarrhea because of which she runs low bicarb. at the bedside. REVIEW OF SYSTEMS: Really could not be obtained because of dementia. CURRENT MEDICATIONS: Reviewed that include IV ceftriaxone and sodium bicarb. PHYSICAL EXAMINATION: VITAL SIGNS: Temperature 97.7, pulse 72, respiratory 18, blood pressure 129/78, pulse ox 98% on room air. GENERAL APPEARANCE: Sitting on the edge of the bed, awake. EYES: Pupils equal. Conjunctivae normal. NECK JVD not raised. Mass not palpable. RESPIRATORY effort normal. LUNGS are clear. CARDIOVASCULAR 1st and 2nd sounds no edema. ABDOMEN: Soft. Liver and spleen not palpable. PSYCHIATRY: Awake, answer some occasional questions. INVESTIGATIONS: No blood work from today. Urine cultures growing gram-negative bacilli. ASSESSMENT: 1. Acute delirium from underlying urinary tract infection. 2. Acute urinary tract infection, likely cystitis from gram-negative bacilli. Pending culture. 3. Major neurocognitive disorder from underlying advanced Alzheimer's dementia early onset type with some psychosis. 4. Chronic kidney stage 3 from nephrosclerosis. 5. Bilateral nephrolithiasis asymptomatic. 6. Metabolic acidosis from renal failure. 7. Normocytic anemia likely from anemia of chronic kidney disease. 8. Hypoalbuminemia probably from mild protein-calorie malnutrition. PLAN: Continue current medication and treatment plan. Increase sodium bicarb to 650 mg 3 times a day. We will change antibiotics when cultures return. Care was discussed with the . MMODL / IJN: [id number] /
[2018-07-29 07:42] VITALS: RESP 16
[2018-07-29] MEDS: GABAPENTIN 300 MG CAP PO SCH (09:39)
[2018-07-29] MEDS: QUEtiapine 25 MG TAB PO SCH ×2 (09:39→21:52)
[2018-07-29] MEDS: FAMOTIDINE 20 MG TAB PO SCH (09:39)
[2018-07-29] MEDS: FLUoxetine HCL 20 MG CAP PO SCH (09:39)
[2018-07-29] MEDS: POTASSIUM CHLORIDE ER 20 MEQ TAB.ER PO SCH ×2 (09:40→21:52)
[2018-07-29] MEDS: ZINC OXIDE 20% OINT 28.4 GM TUBE TOPICAL SCH ×2 (12:02→21:53)
--- NOTE | 2018-07-29 17:14 | PN ---
PROGRESS NOTE DATE OF SERVICE: 07/29/2018 PRESENTING COMPLAINT: Acute agitation. INTERVAL HISTORY: This patient presented with acute delirium from underlying UTI as well as underlying major neurocognitive disorder. The patient dose of Seroquel was cut back in the morning, the morning dose. Patient's Namenda and Synthroid was discontinued. The patient also has got chronic diarrhea because of bowel surgery for Crohn's disease in the past. Started on Metamucil yesterday. at the bedside this morning. States the diarrhea is greatly improved. The patient is lying in bed, a bit more cooperative. REVIEW OF SYSTEMS: Was attempted but really cannot answer questions because of dementia. CURRENT MEDICATIONS: Reviewed that include IV ceftriaxone, sodium bicarbonate and Metamucil. PHYSICAL EXAMINATION: VITAL SIGNS: Temperature 98.2, pulse 73, respiratory rate 16, blood pressure 117/74, pulse ox 98% on room air. GENERAL APPEARANCE: Lying in bed, more comfortable. EYES: Pupils equal. Conjunctivae normal. HEENT: External appearance of nose and ears normal. Oral cavity normal. NECK JVD not raised. Mass not palpable. RESPIRATORY effort normal. LUNGS are clear. CARDIOVASCULAR: 1st and 2nd sounds normal. No edema. ABDOMEN: Soft, nontender. Liver and spleen not palpable. PSYCHIATRY: Patient does answer some questions. INVESTIGATIONS: No blood work from today. Urine cultures growing Klebsiella pneumonia. ASSESSMENT: 1. Acute delirium from underlying urinary tract infection with some clinical response. 2. Acute urinary tract infection from cystitis from Klebsiella pneumoniae. 3. Major neurocognitive disorder from underlying advanced Alzheimer's dementia, early onset type with some psychosis, now stable. 4. Chronic kidney stage 3 from nephrosclerosis. 5. Bilateral nephrolithiasis asymptomatic. 6. Metabolic acidosis from chronic diarrhea and renal failure. 7. Normocytic anemia likely anemia of chronic kidney disease. 8. Hypoalbuminemia probably from old protein calorie malnutrition. 9. Chronic diarrhea with history of bowel resection from Crohn's disease. PLAN: Patient is responding well to Metamucil and increased dose of sodium bicarb. We will switch the patient's IV ceftriaxone to Keflex. Care was discussed with the patient's . Repeat labs in the morning. MMODL / IJN: [id number] /
[2018-07-29] MEDS: GABAPENTIN 100 MG CAP PO SCH (21:52)
[2018-07-29] MEDS: ASPIRIN 81 MG PO SCH (21:52)
[2018-07-30] MEDS: FAMOTIDINE 20 MG TAB PO SCH (08:35)
[2018-07-30] MEDS: FLUoxetine HCL 20 MG CAP PO SCH (08:35)
[2018-07-30] MEDS: CEPHALEXIN 500 MG CAP PO SCH ×3 (08:35→12:44)
[2018-07-30] MEDS: SODIUM BICARBONATE TAB 650 MG TAB PO SCH ×2 (08:35→15:23)
[2018-07-30] MEDS: POTASSIUM CHLORIDE ER 20 MEQ TAB.ER PO SCH (08:35)
[2018-07-30] MEDS: GABAPENTIN 300 MG CAP PO SCH (08:36)
[2018-07-30] MEDS: PSYLLIUM HUSK 100% 6 GM PACKET PO SCH (08:37)
[2018-07-30] MEDS: ZINC OXIDE 20% OINT 28.4 GM TUBE TOPICAL SCH (08:37)
[2018-07-30] MEDS: QUEtiapine 25 MG TAB PO SCH (08:53)
[2018-07-30 10:16] LABS: Basophils % (A) 1 %; Eosinophils # (A) 0.2 k/uL (0-0.7); Eosinophils % (A) 5 %; HCT 32.4 % (34.0-46.0); HGB 10.8 gm/dL (11.4-16.0); Lymphocytes # (A) 1.5 k/uL (1.0-4.8); Lymphocytes % (A) 33 %; MCH 35.1 pg (25.0-35.0); MCHC 33.3 g/dL (31.0-37.0); MCV 105.5 fL (80.0-100.0); Macrocytosis Moderate; Mean Platelet Volume 6.9; Monocytes # (A) 0.3 k/uL (0-1.0); Monocytes % (A) 6 %; Neutrophils # (A) 2.5 k/uL (1.3-7.7); Neutrophils % (A) 54 %; Platelet Count 211 k/uL (150-450); RBC 3.07 m/uL (3.80-5.40); RDW 15.9 % (11.5-15.5); WBC 4.6 k/uL (3.8-10.6)
[2018-07-30 10:22] LABS: Calcium 8.1 mg/dL (8.4-10.2); Magnesium 1.2 mg/dL (1.6-2.3)
[2018-07-30 15:37] VITALS: BP 112/69; PULSE 72; TEMP 97.4
--- NOTE | 2018-07-30 16:10 | DS ---
DISCHARGE SUMMARY DATE OF ADMISSION: 07/29/18. DATE OF DISCHARGE: 07/30/18. FINAL DIAGNOSIS: 1. Acute delirium from underlying UTI from Klebsiella pneumoniae. 2. Acute urinary tract infection from cystitis from Klebsiella pneumoniae. 3. Major neuro cognitive disorder from underlying advanced Alzheimer's dementia, early onset type with some psychosis. 4. Chronic kidney disease stage 3 from nephrosclerosis. 5. Bilateral nephrolithiasis asymptomatic. 6. Metabolic acidosis from chronic diarrhea from renal failure. 7. Normocytic anemia likely from chronic kidney disease. 8. Hypoalbuminemia probably from mild protein-calorie malnutrition. 9. Chronic diarrhea with history of bowel resection from Crohn's disease. HOSPITAL COURSE: This patient presented with acute agitation, felt to be acute delirium from underlying UTI. Urine cultures positive as above. Given the limited benefit of Namenda and the anticholinergic side affects this was discontinued. Also, it was clinically not felt that the patient has probably any more hypothyroid and since TSH was 1.5, the small dose of Synthroid was removed. The patient also got chronic diarrhea from previous bowel resection. I did add Metamucil that greatly improved the patient's diarrhea. Care was discussed with the patient doing much better. The patient about up and about in the hallway more calm. PHYSICAL EXAMINATION: Temperature 97.9 pulse 6, respirations 16 blood pressure 120/64. ABDOMEN: Soft, nontender. Patient is able answer some simple questions. INVESTIGATIONS: White count 4.6, hemoglobin 10.8, potassium 4, creatinine 1.4. Urine cultures positive for Klebsiella pneumoniae. DISCHARGE MEDICATIONS: 1. Vitamin D2 44452 units p.o. Monday, Monday. 2. Neurontin 300 mg in the morning, 200 mg at night. 3. Centrum Silver 1 tablet p.o. daily. 4. Rocaltrol 0.25 mcg p.o. every 7 days. 5. Prozac 20 mg a day. 6. Fish oil 1 capsule p.o. daily. 7. Aspirin 81 mg a day Pepcid 20 mg b.i.d. 8. Preparation H rectal as directed p.r.n. 9. Zinc oxide topical b.i.d. 10.Keflex 100 mg q.i.d. 12 capsules. 11.Lomotil 1 tab q.6h p.r.n. 12.Potassium 20 mEq a day. 13.Metamucil 6 grams p.o. b.i.d. 14.Seroquel 12.5 mg in the morning, 25 mg at night. 15.Sodium bicarb 650 mg p.o. t.i.d. 16.Ultram 100 mg q.8h p.r.n. DISPOSITION: [facility]. FOLLOWUP: Follow up with Dr. Bustillo in the [facility]. Additional instruction sleep hygiene cycle to be maintain status. Patient to be woken up at 7 o'clock every day and let the patient's sleep after lunch approximately for 2 hours, that is from 1 to 3, the patient to be woken up again and patient to let go back asleep at 9 or 10 when she gets her Seroquel and not to be woken up until morning. This sleep hygiene was discussed with the patient's . To be followed. MMCLARENCEL / SEANN: [id number] /
== END 2018-07-30 16:27 | DRG 690 ==
LOC: EC 00:20 → 4MS4W 01:43 → OBSVTOIN 07-29 13:37
PROVIDERS: ADMIT Hospitalist; ATTEND Hospitalist
DX: N30.90 Cystitis, unspecified without hematuria (principal); E44.1 Mild protein-calorie malnutrition; E87.2 Acidosis; K50.90 Crohn's disease, unspecified, without complications; B96.1 Klebsiella pneumoniae [K. pneumoniae] as the cause of diseases classified elsewhere; D63.1 Anemia in chronic kidney disease; E03.9 Hypothyroidism, unspecified; F01.50 Vascular dementia, unspecified severity, without behavioral disturbance, psychotic disturbance, mood disturbance, and anxiety; F02.80 Dementia in other diseases classified elsewhere, unspecified severity, without behavioral disturbance, psychotic disturbance, mood disturbance, and anxiety; G30.9 Alzheimer's disease, unspecified; I12.9 Hypertensive chronic kidney disease with stage 1 through stage 4 chronic kidney disease, or unspecified chronic kidney disease; M79.7 Fibromyalgia; N18.3 Chronic kidney disease, stage 3 (moderate); N20.0 Calculus of kidney; Z82.5 Family history of asthma and other chronic lower respiratory diseases; Z87.440 Personal history of urinary (tract) infections; Z87.442 Personal history of urinary calculi; Z87.891 Personal history of nicotine dependence; Z90.49 Acquired absence of other specified parts of digestive tract; Z90.710 Acquired absence of both cervix and uterus; Z79.899 Other long term (current) drug therapy; Z79.890 Hormone replacement therapy; Z98.51 Tubal ligation status; Z68.24 Body mass index [BMI] 24.0-24.9, adult
CPT/HCPCS: 36415; 80048; 80053; 81001; 82607; 83735; 84443; 85025; 87077; 87086; 87186; 96365; 96372; 99285

== ENCOUNTER 2018-12-23 18:40 | Emergency (ER) | payer MEDICARE, OTHER ==
[2018-12-23] MEDS ORDERED: SODIUM CHLORIDE 0.9% 500 ML 500 ML IV ONE (19:21)
--- NOTE | 2018-12-23 19:26 | ED ---
General Adult HPI - General Chief complaint: Fall Stated complaint: Fall Time Seen by Provider: 12/23/18 18:48 Source: family, EMS Mode of arrival: EMS Limitations: altered mental status - History of Present Illness Initial comments: 63-year-old female patient with past medical history significant for dementia, fibromyalgia, hypertension, kidney stones, Crohn's disease, and multiple UTIs presents to the emergency department today for evaluation of increased weakness and decreased responsiveness. is at bedside and provides all history, patient is unable to contribute to history at all. states the patient is currently residing at [facility] and did have an unwitnessed fall on Monday. They believe that she may have struck her head on the dresser. Patient does have ecchymosis and swelling surrounding the right eye. States that today she has been unable to get out of bed, get up to the bathroom, and has not been making any sense when speaking. denies any recent rash, fever, chills, evidence of shortness breath, complaints of chest pain, abdominal pain, nausea, vomiting, diarrhea, constipation, or back pain. Patient is incontinent of urine. - Related Data Home Medications Medication Instructions Recorded Confirmed Ergocalciferol [Vitamin D2 50,000 unit PO SUTUFR 03/14/14 12/23/18 (DRISDOL)] Gabapentin [Neurontin] 300 mg PO QA 03/14/14 12/23/18 Gabapentin [Neurontin] 200 mg PO HS 06/24/15 12/23/18 Calcitriol [Rocaltrol] 0.25 mcg PO Q7D 02/21/18 12/23/18 Fish Oil 1400mg 1 cap PO DAILY 02/21/18 12/23/18 Aspirin 81 mg PO 12/23/18 12/23/18 Diphenox-Atrop 2.5-0.025 mg 1 tab PO Q6H PRN 12/23/18 12/23/18 [Lomotil] Escitalopram [Lexapro] 20 mg PO DAILY 12/23/18 12/23/18 Famotidine [Pepcid] 20 mg PO DAILY 12/23/18 12/23/18 Ferrous Sulfate [Feosol] 325 mg PO HS 12/23/18 12/23/18 LORazepam [Ativan] 1 mg PO HS 12/23/18 12/23/18 Lorazepam 2mg Gel 1 applic TOPICAL BID 12/23/18 12/23/18 Magnesium Oxide [Mag-Ox] 400 mg PO BID 12/23/18 12/23/18 Potassium Chloride ER [K-Dur 20] 20 meq PO HS 12/23/18 12/23/18 lamoTRIgine [LaMICtal] 25 mg PO DAILY 12/23/18 12/23/18 lamoTRIgine [LaMICtal] 100 mg PO DAILY 12/23/18 12/23/18 Previous Rx's Medication Instructions Recorded Psyllium Husk 100% [Metamucil 6 gm PO BID packet 07/30/18 Packet] Sodium Bicarbonate Tab 650 mg PO TID tab 07/30/18 traMADol HCL [Ultram] 100 mg PO Q8HR PRN #8 tablet 07/30/18 Cephalexin [Keflex] 500 mg PO Q6H #28 cap 12/23/18 Allergies Allergy/AdvReac Type Severity Reaction Status Date / Time No Known Allergies Allergy Verified 12/23/18 20:21 Review of Systems ROS Statement: Those systems with pertinent positive or pertinent negative responses have been documented in the HPI. ROS Other: All systems not noted in ROS Statement are negative. Past Medical History Past Medical History: Dementia, Fibromyalgia, Hypertension, Memory Impairment, Osteoarthritis (OA), Thyroid Disorder Additional Past Medical History / Comment(s): Crohns, KIDNEY STONE, ANEMIA, ACUTE per pt's spouse pt had "broken heart syndrome in past", uti, past stress test. UTI. History of Any Multi-Drug Resistant Organisms: None Reported Past Surgical History: Bowel Resection, Cholecystectomy, Heart Catheterization With Stent, Hysterectomy, Tubal Ligation Additional Past Surgical History / Comment(s): Gallblader (FEBRUARY 2014 [facility]), Bowel Resection d/t [id number], SMALL BOWEL CAPSULE ENDOSCOPY, several COLONOSCOCPY. Past Anesthesia/Blood Transfusion Reactions: No Reported Reaction Date of Last Stent Placement:: does not remember Past Psychological History: Depression Smoking Status: Former smoker Past Alcohol Use History: None Reported Past Drug Use History: None Reported - Past Family History Mother History Unknown: Yes Father History Unknown: Yes Sister(s) Family Medical History: Asthma Additional Family Medical History / Comment(s): Passed on from asthma attack General Exam Limitations: altered mental status General appearance: alert, in no apparent distress, other (Physical well- developed, thin appearing elderly female patient in no acute distress. Vital signs upon presentation are temperature 97.8F, pulse 66, respiration 16, blood pressure 134/85, pulse ox 98% on room air.) Eye exam: Present: PERRL, EOMI, periorbital swelling (Right periorbital swelling ), periorbital tenderness (Right superior orbital tenderness), other ( Periorbital ecchymosis noted on the right. No evidence of globe injury. No hyphema.). Absent: normal appearance, scleral icterus, conjunctival injection ENT exam: Present: normal exam, normal oropharynx, mucous membranes moist Neck exam: Present: normal inspection, full ROM. Absent: tenderness, meningismus, lymphadenopathy Respiratory exam: Present: normal lung sounds bilaterally. Absent: respiratory distress, wheezes, rales, rhonchi, stridor Cardiovascular Exam: Present: regular rate, normal rhythm, normal heart sounds. Absent: systolic murmur, diastolic murmur, rubs, gallop, clicks GI/Abdominal exam: Present: soft, normal bowel sounds. Absent: distended, tenderness, guarding, rebound, rigid Neurological exam: Present: alert, CN II-XII intact. Absent: oriented X3 ( Oriented 1) Psychiatric exam: Present: normal affect, normal mood Skin exam: Present: warm, dry, intact, normal color. Absent: rash Course Vital Signs 12/23/18 12/23/18 18:45 23:57 Temperature 97.8 F 98.0 F Pulse Rate 66 75 Respiratory 16 20 Rate Blood Pressure 134/85 100/72 O2 Sat by Pulse 98 98 Oximetry EKG Findings - EKG Comments: EKG Findings:: EKG obtained at 2007 shows normal sinus rhythm with a ventricular rate of 64, MT interval 158, QR episcopal 80, QT 428, QTC 441. No evidence of ST elevation or depression. Medical Decision Making - Medical Decision Making 63-year-old female patient presents to the emergency department today for evaluation of weakness and increased confusion. She did have a fall on Monday. Physical examination is unremarkable. Labs reviewed and did reveal normal white blood cell count, BUN 30, Creatinine 2.01, urinalysis shows cloudy urine appearance with 1+ protein, moderate blood, large leukocyte esterase, 16 red blood cells, 45 white blood cells, many bacteria, and rare mucous. CT of the brain was obtained and showed no acute intracranial abnormalities. Facial bones are negative for any fractures. Patient most likely is experiencing increased confusion and weakness and urinary tract infection. We'll give 1 dose of IV Rocephin here in the emergency department and start Keflex outpatient. [facility]. is aware of and is agreeable to plan. - Lab Data Result diagrams: 12/23/18 21:29 12/23/18 21:29 Lab Results 12/23/18 12/23/18 12/23/18 Range/Units 21:29 21:29 21:29 WBC 7.2 (3.8-10.6) k/uL RBC 3.55 L (3.80-5.40) m/uL Hgb 13.1 D (11.4-16.0) gm/dL Hct 40.1 (34.0-46.0) % MCV 112.7 H (80.0-100.0) fL MCH 36.9 H (25.0-35.0) pg MCHC 32.7 (31.0-37.0) g/dL RDW 13.5 (11.5-15.5) % Plt Count (150-450) k/uL Neutrophils % (Manual) 56 % Lymphocytes % (Manual) 39 % Monocytes % (Manual) 4 % Eosinophils % (Manual) 1 % Neutrophils # (Manual) 4.03 (1.3-7.7) k/uL Lymphocytes # (Manual) 2.81 (1.0-4.8) k/uL Monocytes # (Manual) 0.29 (0-1.0) k/uL Eosinophils # (Manual) 0.07 (0-0.7) k/uL Nucleated RBCs 0 (0-0) /100 WBC Manual Slide Review Performed Macrocytosis Marked PT 11.8 (9.0-12.0) sec INR 1.1 (<1.2) APTT 21.4 L (22.0-30.0) sec Sodium 142 (137-145) mmol/L Potassium 4.9 (3.5-5.1) mmol/L Chloride 111 H (98-107) mmol/L Carbon Dioxide 29 (22-30) mmol/L Anion Gap 2 mmol/L BUN 30 H (7-17) mg/dL Creatinine 2.01 H (0.52-1.04) mg/dL Est GFR (CKD-EPI)AfAm 30 (>60 ml/min/1.73 sqM) Est GFR (CKD-EPI)NonAf 26 (>60 ml/min/1.73 sqM) Glucose 92 (74-99) mg/dL Calcium 8.3 L (8.4-10.2) mg/dL Total Bilirubin 0.6 (0.2-1.3) mg/dL AST 26 (14-36) U/L ALT 33 (9-52) U/L Alkaline Phosphatase 94 (38-126) U/L Troponin I (0.000-0.034) ng/mL Total Protein 4.9 L (6.3-8.2) g/dL Albumin 2.3 L (3.5-5.0) g/dL Urine Color Urine Appearance (Clear) Urine pH (5.0-8.0) Ur Specific [place] (1.001-1.035) Urine Protein (Negative) Urine Glucose (UA) (Negative) Urine Ketones (Negative) Urine Blood (Negative) Urine Nitrite (Negative) Urine Bilirubin (Negative) Urine Urobilinogen (<2.0) mg/dL Ur Leukocyte Esterase (Negative) Urine RBC (0-5) /hpf Urine WBC (0-5) /hpf Urine Bacteria (None) /hpf Urine Mucus (None) /hpf Urine Opiates Screen (NotDetected) Ur Oxycodone Screen (NotDetected) Urine Methadone Screen (NotDetected) Ur Propoxyphene Screen (NotDetected) Ur Barbiturates Screen (NotDetected) U Tricyclic Antidepress (NotDetected) Ur Phencyclidine Scrn (NotDetected) Ur Amphetamines Screen (NotDetected) U Methamphetamines Scrn (NotDetected) U Benzodiazepines Scrn (NotDetected) Urine Cocaine Screen (NotDetected) U Marijuana (THC) Screen (NotDetected) 12/23/18 12/23/18 Range/Units 21:29 23:00 WBC (3.8-10.6) k/uL RBC (3.80-5.40) m/uL Hgb (11.4-16.0) gm/dL Hct (34.0-46.0) % MCV (80.0-100.0) fL MCH (25.0-35.0) pg MCHC (31.0-37.0) g/dL RDW (11.5-15.5) % Plt Count (150-450) k/uL Neutrophils % (Manual) % Lymphocytes % (Manual) % Monocytes % (Manual) % Eosinophils % (Manual) % Neutrophils # (Manual) (1.3-7.7) k/uL Lymphocytes # (Manual) (1.0-4.8) k/uL Monocytes # (Manual) (0-1.0) k/uL Eosinophils # (Manual) (0-0.7) k/uL Nucleated RBCs (0-0) /100 WBC Manual Slide Review Macrocytosis PT (9.0-12.0) sec INR (<1.2) APTT (22.0-30.0) sec Sodium (137-145) mmol/L Potassium (3.5-5.1) mmol/L Chloride (98-107) mmol/L Carbon Dioxide (22-30) mmol/L Anion Gap mmol/L BUN (7-17) mg/dL Creatinine (0.52-1.04) mg/dL Est GFR (CKD-EPI)AfAm (>60 ml/min/1.73 sqM) Est GFR (CKD-EPI)NonAf (>60 ml/min/1.73 sqM) Glucose (74-99) mg/dL Calcium (8.4-10.2) mg/dL Total Bilirubin (0.2-1.3) mg/dL AST (14-36) U/L ALT (9-52) U/L Alkaline Phosphatase (38-126) U/L Troponin I 0.018 (0.000-0.034) ng/mL Total Protein (6.3-8.2) g/dL Albumin (3.5-5.0) g/dL Urine Color Yellow Urine Appearance Cloudy H (Clear) Urine pH 7.0 (5.0-8.0) Ur Specific [place] 1.013 (1.001-1.035) Urine Protein 1+ H (Negative) Urine Glucose (UA) Negative (Negative) Urine Ketones Negative (Negative) Urine Blood Moderate H (Negative) Urine Nitrite Negative (Negative) Urine Bilirubin Negative (Negative) Urine Urobilinogen <2.0 (<2.0) mg/dL Ur Leukocyte Esterase Large H (Negative) Urine RBC 16 H (0-5) /hpf Urine WBC 45 H (0-5) /hpf Urine Bacteria Many H (None) /hpf Urine Mucus Rare H (None) /hpf Urine Opiates Screen Not Detected (NotDetected) Ur Oxycodone Screen Not Detected (NotDetected) Urine Methadone Screen Not Detected (NotDetected) Ur Propoxyphene Screen Not Detected (NotDetected) Ur Barbiturates Screen Not Detected (NotDetected) U Tricyclic Antidepress Not Detected (NotDetected) Ur Phencyclidine Scrn Not Detected (NotDetected) Ur Amphetamines Screen Not Detected (NotDetected) U Methamphetamines Scrn Not Detected (NotDetected) U Benzodiazepines Scrn Detected H (NotDetected) Urine Cocaine Screen Not Detected (NotDetected) U Marijuana (THC) Screen Not Detected (NotDetected) - Radiology Data Radiology results: report reviewed, image reviewed CT facial bones without contrast was obtained. Report was reviewed in its entirety. Impression by Dr. Carlson shows no acute fractures. CT of the brain without contrast was obtained, report was reviewed in its entirety. Impression by Dr. Carlson shows no acute intracranial abnormality. Disposition Clinical Impression: Urinary tract infection, Weakness Disposition: HOME SELF-CARE Condition: Good Instructions (If sedation given, give patient instructions): Urinary Tract Infection in Women (ED), Weakness (ED) Additional Instructions: Complete antibiotic prescription and full. Follow-up with the primary care physician for recheck as soon as possible. Return to the emergency department for any new, worsening, or concerning symptoms. Prescriptions: Cephalexin [Keflex] 500 mg PO Q6H #28 cap Is patient prescribed a controlled substance at d/c from ED?: No Referrals: Omar Bustillo DO [Primary Care Provider] - 1-2 days Time of Disposition: 23:41
[2018-12-23] MEDS ORDERED: LORazepam 2 MG/ML INJ IV STA (21:07)
[2018-12-23 21:51] LABS: Albumin 2.3 g/dL (3.5-5.0); Calcium 8.3 mg/dL (8.4-10.2); Potassium 4.9 mmol/L (3.5-5.1); Total Bilirubin 0.6 mg/dL (0.2-1.3); Total Protein 4.9 g/dL (6.3-8.2)
[2018-12-23 21:57] LABS: INR 1.1 (<1.2); Prothrombin Time 11.8 sec (9.0-12.0)
[2018-12-23 21:58] LABS: Partial Thromboplastin Time 21.4 sec (22.0-30.0)
[2018-12-23 22:01] LABS: HCT 40.1 % (34.0-46.0); MCH 36.9 pg (25.0-35.0); MCHC 32.7 g/dL (31.0-37.0); MCV 112.7 fL (80.0-100.0); Macrocytosis Marked; Mean Platelet Volume 8.5; RBC 3.55 m/uL (3.80-5.40); RDW 13.5 % (11.5-15.5); WBC 7.2 k/uL (3.8-10.6)
[2018-12-23 22:02] LABS: HGB 13.1 gm/dL (11.4-16.0)
[2018-12-23 22:25] LABS: Eosinophils # (M) 0.07 k/uL (0-0.7); Lymphocytes # (M) 2.81 k/uL (1.0-4.8); Monocytes # (M) 0.29 k/uL (0-1.0); Neutrophils # (M) 4.03 k/uL (1.3-7.7); Neutrophils % (M) 56 %; Nucleated Red Blood Cells 0 /100 WBC (0-0); Total Cells Counted 100
--- NOTE | 2018-12-23 22:46 | CT ---
EXAM: CT Head Without Intravenous Contrast CLINICAL HISTORY: altered mental status TECHNIQUE: Axial computed tomography images of the head/brain without intravenous contrast. CTDI is 0.085, 0.085, 45.2 mGy and DLP is 1277.6 mGy-cm. This CT exam was performed using one or more of the following dose reduction techniques: automated exposure control, adjustment of the mA and/or kV according to patient size, and/or use of iterative reconstruction technique. COMPARISON: 02/22/2018 FINDINGS: Brain: No acute intracranial hemorrhage, mass, or significant mass effect. Nonspecific areas of hypoattenuation in the periventricular white matter likely represent the sequela of chronic small vessel ischemic disease. Right frontal encephalomalacia. Ventricles: Ventricular and sulcal prominence commensurate with the patient's age. Bones/joints: Unremarkable. No acute fracture. Soft tissues: Unremarkable. Sinuses: Unremarkable. Mastoid air cells: Unremarkable. IMPRESSION: No acute intracranial abnormality.
--- NOTE | 2018-12-23 22:50 | CT ---
EXAM: CT Maxillofacial Without Intravenous Contrast CLINICAL HISTORY: Pain TECHNIQUE: Axial computed tomography images of the face without intravenous contrast. CTDI is 0.085, 0.085, 45.2 mGy and DLP is 1277.6 mGy-cm. This CT exam was performed using one or more of the following dose reduction techniques: automated exposure control, adjustment of the mA and/or kV according to patient size, and/or use of iterative reconstruction technique. COMPARISON: No relevant prior studies available. FINDINGS: Bones/joints: No acute fracture. Soft tissues: Unremarkable. Orbits: Unremarkable. Sinuses: Mild mucosal thickening in the paranasal sinuses. No air- fluid levels. IMPRESSION: No acute facial fractures.
[2018-12-23 23:14] LABS: Appearance,Urine Cloudy (Clear); Bacteria,Urine Many /hpf; Bilirubin,Urine Negative (Negative); Blood,Urine Moderate (Negative); Color,Urine Yellow; Glucose,Urine (UA) Negative (Negative); Ketones,Urine Negative (Negative); Leukocyte Esterase,Urine Large (Negative); Mucus,Urine Rare /hpf; Nitrite,Urine Negative (Negative); Protein,Urine 1+ (Negative); RBC,Urine 16 /hpf (0-5); Specific Gravity,Urine 1.013 (1.001-1.035); Urobilinogen,Urine <2.0 mg/dL (<2.0); WBC,Urine 45 /hpf (0-5)
[2018-12-23 23:26] LABS: Amphetamine Screen,Urine Not Detected (NotDetected); Barbiturate Screen,Urine Not Detected (NotDetected); Benzodiazepines Screen,Urine Detected (NotDetected); Cocaine Screen,Urine Not Detected (NotDetected); Methadone Screen, Urine Not Detected (NotDetected); Opiate Screen,Urine Not Detected (NotDetected); Oxycodone Screen, Urine Not Detected (NotDetected); Phencyclidine Screen,Urine Not Detected (NotDetected); Tricyclic Antidepressant,Urine Not Detected (NotDetected); Urn Cannabinoid Scrn Not Detected (NotDetected)
[2018-12-23 23:59] VITALS: BP 100/72; PULSE 75; RESP 20; TEMP 98
== END 2018-12-24 00:42 | disposition home or self-care (01) ==
LOC: EC 18:40
DX: N39.0 Urinary tract infection, site not specified (principal); R53.1 Weakness; S05.11XA Contusion of eyeball and orbital tissues, right eye, initial encounter; F03.90 Unspecified dementia, unspecified severity, without behavioral disturbance, psychotic disturbance, mood disturbance, and anxiety; M79.7 Fibromyalgia; I10 Essential (primary) hypertension; M19.90 Unspecified osteoarthritis, unspecified site; F32.9 Major depressive disorder, single episode, unspecified; D64.9 Anemia, unspecified; Z87.891 Personal history of nicotine dependence; Z79.82 Long term (current) use of aspirin; Z79.899 Other long term (current) drug therapy; Z95.5 Presence of coronary angioplasty implant and graft; W19.XXXA Unspecified fall, initial encounter
CPT/HCPCS: 36415; 93005; 80053; 84484; 85025; 85610; 85730; 81001; 80306; 87086; 70486; 70450; 99284; 96365; 96375; 96361; J2060; J0696

== ENCOUNTER 2018-12-24 13:42 | Observation (INO) | payer MEDICARE, OTHER ==
[2018-12-24 14:02] LABS: Glucose,Whole Blood 87 mg/dL (75-99)
--- NOTE | 2018-12-24 14:36 | ED ---
General Adult HPI - General Chief complaint: Weakness Stated complaint: increased weakness Time Seen by Provider: 12/24/18 13:44 Source: patient, family, EMS, RN notes reviewed Mode of arrival: ambulatory Limitations: altered mental status - History of Present Illness Initial comments: Patient is a pleasantly demented 63-year-old female presenting to the emergency department with weakness. Symptoms have been present for the past couple of days. Patient was in the emergency department yesterday and diagnosed with urinary tract infection. Patient did strike and hit her eye prior to that. Patient had a reported negative computed tomography scan of the brain. Patient is a poor historian as she has advanced dementia. Family provides history. - Related Data Home Medications Medication Instructions Recorded Confirmed Ergocalciferol [Vitamin D2 50,000 unit PO SUTUFR 03/14/14 12/24/18 (DRISDOL)] Gabapentin [Neurontin] 300 mg PO QAM 03/14/14 12/24/18 Gabapentin [Neurontin] 200 mg PO HS 06/24/15 12/24/18 Calcitriol [Rocaltrol] 0.25 mcg PO FR 02/21/18 12/24/18 Fish Oil 1400mg 1 cap PO HS 02/21/18 12/24/18 Aspirin 81 mg PO HS 12/23/18 12/24/18 Diphenox-Atrop 2.5-0.025 mg 1 tab PO Q6H PRN 12/23/18 12/24/18 [Lomotil] Escitalopram [Lexapro] 20 mg PO DAILY 12/23/18 12/24/18 Famotidine [Pepcid] 20 mg PO DAILY 12/23/18 12/24/18 Ferrous Sulfate [Feosol] 325 mg PO HS 12/23/18 12/24/18 LORazepam [Ativan] 1 mg PO HS 12/23/18 12/24/18 Lorazepam 2mg Gel 1 applic TOPICAL BID 12/23/18 12/24/18 Magnesium Oxide [Mag-Ox] 400 mg PO BID 12/23/18 12/24/18 Potassium Chloride ER [K-Dur 20] 20 meq PO HS 12/23/18 12/24/18 lamoTRIgine [LaMICtal] 25 mg PO DAILY 12/23/18 12/24/18 lamoTRIgine [LaMICtal Odt] 50 mg PO DIRECTED 12/24/18 12/24/18 Previous Rx's Medication Instructions Recorded Psyllium Husk 100% [Metamucil 6 gm PO BID packet 07/30/18 Packet] Sodium Bicarbonate Tab 650 mg PO TID tab 07/30/18 traMADol HCL [Ultram] 100 mg PO Q8HR PRN #8 tablet 07/30/18 Cephalexin [Keflex] 500 mg PO Q6H #28 cap 12/23/18 Allergies Allergy/AdvReac Type Severity Reaction Status Date / Time No Known Allergies Allergy Verified 12/24/18 14:19 Review of Systems ROS Statement: Those systems with pertinent positive or pertinent negative responses have been documented in the HPI. ROS Other: All systems not noted in ROS Statement are negative. Limitations: ROS unobtainable due to patients medical condition Past Medical History Past Medical History: Dementia, Fibromyalgia, Hypertension, Memory Impairment, Osteoarthritis (OA), Thyroid Disorder Additional Past Medical History / Comment(s): Crohns, KIDNEY STONE, ANEMIA, ACUTE per pt's spouse pt had "broken heart syndrome in past", uti, past stress test. UTI. History of Any Multi-Drug Resistant Organisms: None Reported Past Surgical History: Bowel Resection, Cholecystectomy, Heart Catheterization With Stent, Hysterectomy, Tubal Ligation Additional Past Surgical History / Comment(s): Gallblader (FEBRUARY 2014 [facility]), Bowel Resection d/t [id number], SMALL BOWEL CAPSULE ENDOSCOPY, several COLONOSCOCPY. Past Anesthesia/Blood Transfusion Reactions: No Reported Reaction Date of Last Stent Placement:: does not remember Past Psychological History: Depression Smoking Status: Former smoker Past Alcohol Use History: None Reported Past Drug Use History: None Reported - Past Family History Mother History Unknown: Yes Father History Unknown: Yes Sister(s) Family Medical History: Asthma Additional Family Medical History / Comment(s): Passed on from asthma attack General Exam Limitations: altered mental status General appearance: alert, in no apparent distress Head exam: Present: other (Right forehead/eyelid ecchymosis) Eye exam: Present: normal appearance, PERRL ENT exam: Present: normal oropharynx Neck exam: Present: normal inspection. Absent: tenderness, meningismus Respiratory exam: Present: normal lung sounds bilaterally Cardiovascular Exam: Present: regular rate, normal rhythm GI/Abdominal exam: Present: soft. Absent: tenderness Extremities exam: Present: normal inspection Neurological exam: Present: alert, other (Limited evaluation. Patient follows some commands. Limited verbal capability.) Expanded Neurological exam: Present: protecting the airway Patient oriented to: Present: person Motor strength exam: RUE: 5, LUE: 5, RLE: 5, LLE: 5 Psychiatric exam: Present: flat affect Skin exam: Present: normal color Course Vital Signs 12/24/18 13:45 Temperature 98.5 F Pulse Rate 73 Respiratory 18 Rate Blood Pressure 135/98 O2 Sat by Pulse 97 Oximetry EKG Findings - EKG Comments: EKG Findings:: Normal sinus rhythm at 71. ME 164. QRS 72. QT 412. QTC 447. Left axis. Low QRS voltage. No acute ST change. Medical Decision Making - Medical Decision Making Chart reviewed from yesterday. Patient does have evidence of urinary tract infection with generalized weakness. Head CT without acute abnormality. Case was discussed in detail with Dr. Snowden, covering for Dr. Bustillo, who will admit. - Lab Data Lab Results 12/24/18 Range/Units 14:00 POC Glucose (mg/dL) 87 (75-99) mg/dL POC Glu Living Skills Advisor ID Juan Carlos Danelle Disposition Clinical Impression: Urinary tract infection, Generalized weakness Disposition: ADMITTED IP TO THIS HOSP Referrals: Omar Bustillo DO [Primary Care Provider] - 1-2 days Decision Time: 14:39
[2018-12-24] MEDS ORDERED: ACETAMINOPHEN TAB 325 MG TAB PO PRN (14:40)
[2018-12-24] MEDS ORDERED: NALOXONE 0.4 MG/ML 1 ML VIAL IV PRN (14:40)
[2018-12-24] MEDS ORDERED: LORazepam 2 MG/ML INJ IV PRN (14:40)
[2018-12-24] MEDS ORDERED: SODIUM CHLORIDE 0.9% 500 ML 500 ML IV SCH (14:45)
[2018-12-24] MEDS ORDERED: SODIUM CHLORIDE 0.9% 1,000 ML IV SCH (14:45)
[2018-12-24 15:29] LABS: Basophils # (A) 0.1 k/uL (0-0.2); Basophils % (A) 0 %; Eosinophils # (A) 0.1 k/uL (0-0.7); Eosinophils % (A) 1 %; HCT 37.3 % (34.0-46.0); HGB 12.6 gm/dL (11.4-16.0); Lymphocytes # (A) 1.7 k/uL (1.0-4.8); Lymphocytes % (A) 14 %; MCH 37.6 pg (25.0-35.0); MCHC 33.8 g/dL (31.0-37.0); MCV 111.3 fL (80.0-100.0); Macrocytosis Marked; Mean Platelet Volume 7.5; Monocytes # (A) 0.6 k/uL (0-1.0); Monocytes % (A) 5 %; Neutrophils # (A) 9.4 k/uL (1.3-7.7); Neutrophils % (A) 79 %; Platelet Count 178 k/uL (150-450); RBC 3.35 m/uL (3.80-5.40); RDW 13.4 % (11.5-15.5); WBC 11.9 k/uL (3.8-10.6)
[2018-12-24 15:42] LABS: Calcium 8.1 mg/dL (8.4-10.2); Potassium 4.8 mmol/L (3.5-5.1); Total Bilirubin 0.7 mg/dL (0.2-1.3); Total Protein 4.4 g/dL (6.3-8.2)
[2018-12-24 15:52] LABS: INR 1.1 (<1.2); Prothrombin Time 11.3 sec (9.0-12.0)
[2018-12-24 16:02] LABS: Partial Thromboplastin Time 19.1 sec (22.0-30.0)
--- NOTE | 2018-12-24 16:03 | XR ---
EXAMINATION TYPE: XR chest 2V DATE OF EXAM: 12/24/2018 COMPARISON: 05/03/2018 INDICATION: Weakness fall confusion TECHNIQUE: Frontal and lateral views of the chest are obtained. FINDINGS: The heart size is normal. The pulmonary vasculature is normal. The lungs are clear. There is some linear appearance along the periphery of the right apex. Lung mar kings appear to extend beyond this. However, this is a typical appearance for a pneumothorax. This co uld be confirmed with inspiratory and expiratory images. IMPRESSION: 1. Appears to be a small pneumothorax of less than 20% at the right lateral apex. Follow-up is recomm ended. Report was called to emergency room by Dr. Palmer by telephone at the time of interpretation 1555 hours 12-24-2018.
[2018-12-24 16:06] LABS: Appearance,Urine Cloudy (Clear); Bacteria,Urine Rare /hpf; Bilirubin,Urine Negative (Negative); Blood,Urine Moderate (Negative); Color,Urine Yellow; Glucose,Urine (UA) Negative (Negative); Ketones,Urine Negative (Negative); Leukocyte Esterase,Urine Large (Negative); Mucus,Urine Rare /hpf; Nitrite,Urine Positive (Negative); PH, Urine 7.5 (5.0-8.0); Protein,Urine Trace (Negative); RBC,Urine 15 /hpf (0-5); Urobilinogen,Urine <2.0 mg/dL (<2.0); WBC,Urine 60 /hpf (0-5)
[2018-12-24 16:12] LABS: Poikilocytosis (M) Present; Polychromasia Present
--- NOTE | 2018-12-24 16:50 | XR ---
EXAMINATION TYPE: XR chest 1V DATE OF EXAM: 12/24/2018 COMPARISON: Today HISTORY: Possible pneumothorax TECHNIQUE: Single frontal view of the chest is obtained. FINDINGS: A single expiration view of the chest was obtained. This fails to demonstrate evidence of a pneumothorax. Heart size is normal. Lungs are clear of consolidation. There is no pleural effusion. There are chest leads. IMPRESSION: No evidence of a pneumothorax. No active cardiopulmonary disease.
[2018-12-24 18:28] VITALS: BMI 22.8
[2018-12-24] MEDS ORDERED: DIPHENOX-ATROP 2.5-0.025 MG 1 EACH TAB PO PRN (18:39)
[2018-12-24] MEDS ORDERED: FERROUS SULFATE 325 MG TAB PO SCH (21:00)
[2018-12-24] MEDS: POTASSIUM CHLORIDE ER 20 MEQ TAB.ER PO SCH (21:23)
[2018-12-24] MEDS: PSYLLIUM HUSK 100% 6 GM PACKET PO SCH (21:23)
[2018-12-24] MEDS: LORazepam 1 MG TAB PO SCH (21:23)
[2018-12-24] MEDS: MAGNESIUM OXIDE 400 MG TAB PO SCH (21:23)
[2018-12-24] MEDS: SODIUM BICARBONATE TAB 650 MG TAB PO SCH (21:24)
[2018-12-24] MEDS: GABAPENTIN 100 MG CAP PO SCH (21:24)
[2018-12-24] MEDS: ASPIRIN 81 MG PO SCH (21:25)
[2018-12-24] MEDS: traMADol 50 MG TAB PO PRN (21:27)
--- NOTE | 2018-12-24 22:58 | HP ---
HISTORY AND PHYSICAL DATE OF ADMISSION: December 24, 2018. PRESENTING COMPLAINT: Lethargic. HISTORY OF PRESENTING COMPLAINT: This is a 63-year-old patient who follows with Dr. Bustillo. Resident of [facility]. Chronic stable medical conditions include Alzheimer's dementia, bilateral nephrolithiasis, hypertension, osteoarthritis, coronary artery disease with stent. The patient herself is a poor historian. History is obtained by the at the bedside. The patient normally goes to the [facility] every day and takes her for a walk. The day before, patient was found on the floor with the bruising around the right eye. The patient is brought to the ER. CT scan was done, no bleed was found. The patient was treated for UTI over 2 weeks ago and when she was brought in yesterday, she was found to have urine infection yet again, given IV antibiotic and discharged. The patient remained to be lethargic, really not eating and drinking well and normally she is able to walk around. Hence patient was brought in. Patient again found to have a UTI and started on IV antibiotics. Also found to be in acute renal failure. The patient herself is not able to give much of a history, rather lethargic and tired. REVIEW OF SYSTEMS: Cannot be obtained as patient is lethargic and tired. PAST MEDICAL HISTORY: Of Alzheimer's dementia, advanced chronic kidney disease, nephrolithiasis, hypertension, osteoarthritis, chronic diarrhea, coronary artery disease with stent. PAST SURGICAL HISTORY: Bowel resection, cholecystectomy cardiac cath with stent, hysterectomy, tubal ligation, cholecystectomy, bowel resection, several colonoscopies. SOCIAL HISTORY: Depression. The patient started smoking as a teen, quit 38 years ago, that was in 1979. Smoked about a pack a day. FAMILY HISTORY: Of asthma. HOME MEDICATIONS: 1. Lamictal dose unknown. 2. Ultram 100 mg q.8h p.r.n. 3. Sodium bicarb 650 mg t.i.d. 4. Metamucil 6 grams p.o. b.i.d. 5. Potassium 20 mEq q.h.s. 6. Magnesium oxide 400 mg b.i.d. 7. Lorazepam 2 mg gel topical b.i.d. 8. Ativan 1 mg q.h.s. 9. Neurontin 200 mg q.h.s. 300 mg in the morning. 10.Fish oil 1 capsule p.o. q.h.s. 11.Iron 325 p.o. q.h.s. 12.Pepcid 20 mg daily. 13.Lexapro 20 mg daily. 14.Vitamin D2 59308 units on Monday, Monday, Monday. 15.Lomotil 1 tablet q.6h p.r.n. 16.Keflex 500 mg q.6. 17.Rocaltrol 0.25 mcg on Monday. 18.Aspirin 81 mg q.h.s. ALLERGIES: None. PHYSICAL EXAMINATION: VITAL SIGNS: Temperature 98.5, pulse 73, respiratory 18, blood pressure 135/98, pulse ox 97% on room air. GENERAL APPEARANCE: Average build, lying in bed, tired-appearing. EYES: Pupils equal, bruising on the right conjunctivae. HEENT: External appearance of nose and ears normal. Oral cavity dry. Neck: JVD unable to assess. Mass not palpable. RESPIRATORY EFFORT: Normal. LUNGS: Fair air entry. CARDIOVASCULAR: First and second sounds normal. No edema. ABDOMEN: Soft, nontender. Liver and spleen not palpable. LYMPHATIC: No lymph nodes palpable in the neck and axilla. PSYCHIATRY: Patient lethargic, not really answering questions. NEUROLOGICAL: Pupils equal. No facial asymmetry. Does move all the limbs. INVESTIGATIONS: White count 11.9, hemoglobin 12.6, potassium 4.8. BUN 27, creatinine 1.80. UA positive for leukocyte esterase and leuko esterase. The patient's BUN and creatinine was 1.60 on December 06, 2018 and seems to run around 1.6. ASSESSMENT: 1. Acute metabolic encephalopathy probably from Neurontin toxicity in the setting of acute renal failure. 2. Acute renal failure likely prerenal from decreased oral intake. 3. Acute urinary tract infection with cystitis. 4. Severe cognitive impairment from early onset Alzheimer's dementia. 5. Chronic kidney disease stage 3 with a baseline creatinine of 1.6 from nephrosclerosis. 6. Bilateral nephrolithiasis. 7. Essential hypertension. 8. Primary osteoarthritis. 9. Coronary artery disease with stent. 10.Bruising around the right eye no evidence of intracranial bleed. PLAN: The patient will be put on lactated Ringer's. Will discontinue the morning dose of Neurontin. Other home medications are resumed. Care was discussed with the at the bedside. Expect the patient to perk up by bryonorrow. Prognosis is guarded. EKG tracing personally reviewed by me showed normal sinus rhythm and chest x-ray film personally reviewed by me does show infiltrates. Copy Dr. Bustillo. GAYLE / SULEMA: [id number] /
[2018-12-25] MEDS: LACTATED RINGERS 1,000 ML IV SCH ×4 (04:20→21:22)
[2018-12-25 08:00] VITALS: RESP 16
[2018-12-25] MEDS: FAMOTIDINE 20 MG TAB PO SCH (08:41)
[2018-12-25] MEDS: MAGNESIUM OXIDE 400 MG TAB PO SCH ×2 (08:41→21:06)
[2018-12-25] MEDS: lamoTRIgine 25 MG TAB PO SCH (08:41)
[2018-12-25] MEDS: ESCITALOPRAM 20 MG TAB PO SCH (08:41)
[2018-12-25] MEDS: ENOXAPARIN 40 MG/0.4 ML SYRINGE SQ SCH (08:41)
[2018-12-25] MEDS: SODIUM BICARBONATE TAB 650 MG TAB PO SCH ×3 (08:41→21:05)
--- NOTE | 2018-12-25 08:41 | XR ---
EXAMINATION TYPE: XR chest 1V DATE OF EXAM: 12/25/2018 CLINICAL HISTORY: Difficulty breathing and weakness progress study. TECHNIQUE: Single AP portable upright view of the chest is obtained. COMPARISON: Chest x-ray from one day earlier and older studies. FINDINGS: Surgical clips near gastroesophageal junction are redemonstrated. There is some chronic pa renchymal change particularly at the left lung base. Right lung remains clear. No pleural effusion or pneumothorax is present bilaterally. Cardiac silhouette size is stable and upper limits of normal. O sseous structures are intact. Cholecystectomy clips are seen. IMPRESSION: Overall stable findings, chronic left basilar scarring and/or atelectasis. No new suspi cious infiltrate.
[2018-12-25] MEDS: PSYLLIUM HUSK 100% 6 GM PACKET PO SCH ×2 (08:42→21:20)
[2018-12-25] MEDS ORDERED: GABAPENTIN 300 MG CAP PO SCH (09:00)
[2018-12-25 11:13] LABS: Calcium 7.8 mg/dL (8.4-10.2); Potassium 4.2 mmol/L (3.5-5.1)
[2018-12-25 11:47] LABS: Basophils % (A) 0 %; Eosinophils # (A) 0.1 k/uL (0-0.7); Eosinophils % (A) 1 %; HCT 35.6 % (34.0-46.0); HGB 11.5 gm/dL (11.4-16.0); Lymphocytes # (A) 1.3 k/uL (1.0-4.8); Lymphocytes % (A) 13 %; MCH 37.1 pg (25.0-35.0); MCHC 32.3 g/dL (31.0-37.0); Macrocytosis Marked; Mean Platelet Volume 6.6; Monocytes # (A) 0.4 k/uL (0-1.0); Monocytes % (A) 4 %; Neutrophils # (A) 7.8 k/uL (1.3-7.7); Neutrophils % (A) 81 %; Platelet Count 152 k/uL (150-450); RBC 3.09 m/uL (3.80-5.40); RDW 13.5 % (11.5-15.5); WBC 9.7 k/uL (3.8-10.6)
[2018-12-25] MEDS ORDERED: ERGOCALCIFEROL 50,000 UNIT CAP PO SCH (12:00)
[2018-12-25 15:05] LABS: Poikilocytosis (M) Present
[2018-12-25 17:24] LABS: Glucose,Whole Blood 88 mg/dL (75-99)
[2018-12-25] MEDS: ASPIRIN 81 MG PO SCH (21:05)
[2018-12-25] MEDS: POTASSIUM CHLORIDE ER 20 MEQ TAB.ER PO SCH (21:06)
[2018-12-25] MEDS: GABAPENTIN 100 MG CAP PO SCH (21:08)
[2018-12-25] MEDS: LORazepam 1 MG TAB PO SCH (21:09)
[2018-12-25] MEDS: traMADol 50 MG TAB PO PRN (21:09)
--- NOTE | 2018-12-25 23:26 | PN ---
PROGRESS NOTE DATE OF SERVICE: PRESENT COMPLAINT: Tired. INTERVAL HISTORY: Patient presented with acute UTI and what appears to be Neurontin toxicity, dose of which was cut back. Also, given IV fluids. This morning, more awake. Did tolerate some food. at the bedside. REVIEW OF SYSTEMS: Attempted. The patient really does not talk much. CURRENT MEDICATIONS: Reviewed that include IV ceftriaxone. PHYSICAL EXAMINATION: Temperature 97.7, pulse 67, respirations 16, blood pressure 108/76, pulse ox 99% on room air. GENERAL APPEARANCE: Lying in bed, awake. EYES: Pupils equal. Conjunctivae normal. NECK: JVD not raised. Mass not palpable. Respiratory effort normal. LUNGS: Clear. CARDIOVASCULAR: 1st and 2nd sounds. No edema. ABDOMEN: Soft, nontender. Liver and spleen not palpable. PSYCHIATRY: More awake. May occasionally answer questions. INVESTIGATIONS: White count 9.7, potassium 4.2, BUN 19, creatinine 1.61. Urine culture growing gram- negative bacilli. ASSESSMENT: 1. Acute metabolic encephalopathy from Neurontin toxicity in the setting of acute renal failure. 2. Acute renal failure/prerenal from decreased oral intake. 3. Acute urinary tract infection with cystitis from gram-negative bacilli. 4. Severe cognitive impairment from early onset Alzheimer's dementia. 5. Chronic kidney disease stage 3, baseline creatinine 1.6. 6. Bilateral nephrolithiasis. 7. Essential hypertension. 8. Primary osteoarthritis. 9. Coronary artery disease with stent. 10.Bruising around the right eye from recent fall. PLAN: Continue current medication and treatment plan. Encourage patient to be out of bed. Care was discussed with the at the bedside. MMODL / IJN: [id number] /
[2018-12-26] MEDS: LACTATED RINGERS 1,000 ML IV SCH (05:05)
--- NOTE | 2018-12-26 08:26 | XR ---
EXAMINATION TYPE: XR chest 1V DATE OF EXAM: 12/26/2018 COMPARISON: 12/25/2018 HISTORY: Weakness TECHNIQUE: Single frontal view of the chest is obtained. FINDINGS: Left lower lobe infiltrate and small effusion. Right lung clear. Surgical change in the ep igastrium. No pneumothorax. Blunting the costophrenic angle on the right may represent tiny effusion. IMPRESSION: Left lower lobe infiltrate and tiny bilateral effusion stable.
[2018-12-26] MEDS: ENOXAPARIN 40 MG/0.4 ML SYRINGE SQ SCH (09:26)
[2018-12-26] MEDS: ESCITALOPRAM 20 MG TAB PO SCH (09:26)
[2018-12-26] MEDS: SODIUM BICARBONATE TAB 650 MG TAB PO SCH ×3 (09:26→21:29)
[2018-12-26] MEDS: MAGNESIUM OXIDE 400 MG TAB PO SCH ×2 (09:26→21:29)
[2018-12-26] MEDS: lamoTRIgine 25 MG TAB PO SCH (09:26)
[2018-12-26] MEDS: FAMOTIDINE 20 MG TAB PO SCH (09:26)
[2018-12-26] MEDS: PSYLLIUM HUSK 100% 6 GM PACKET PO SCH ×2 (09:27→21:29)
[2018-12-26 10:26] LABS: Calcium 7.6 mg/dL (8.4-10.2); Potassium 4.1 mmol/L (3.5-5.1)
[2018-12-26] MEDS: LORazepam 1 MG TAB PO SCH (21:28)
[2018-12-26] MEDS: ASPIRIN 81 MG PO SCH (21:28)
[2018-12-26] MEDS: GABAPENTIN 100 MG CAP PO SCH (21:28)
[2018-12-26] MEDS: POTASSIUM CHLORIDE ER 20 MEQ TAB.ER PO SCH (21:29)
[2018-12-27] MEDS: ESCITALOPRAM 20 MG TAB PO SCH (08:56)
[2018-12-27] MEDS: SODIUM BICARBONATE TAB 650 MG TAB PO SCH ×2 (08:56→17:14)
[2018-12-27] MEDS: MAGNESIUM OXIDE 400 MG TAB PO SCH (08:57)
[2018-12-27] MEDS: ENOXAPARIN 40 MG/0.4 ML SYRINGE SQ SCH (08:57)
[2018-12-27] MEDS: PSYLLIUM HUSK 100% 6 GM PACKET PO SCH (08:57)
[2018-12-27] MEDS: FAMOTIDINE 20 MG TAB PO SCH (08:57)
[2018-12-27] MEDS ORDERED: lamoTRIgine 25 MG TAB PO SCH ×2 (09:00)
--- NOTE | 2018-12-27 09:48 | XR ---
EXAMINATION TYPE: XR chest 1V DATE OF EXAM: 12/27/2018 CLINICAL HISTORY: Weakness progress study. TECHNIQUE: Single AP portable frontal view of the chest is obtained. COMPARISON: Chest x-ray from one day earlier and older studies. FINDINGS: Surgical clips epigastric region just below diaphragm are redemonstrated. Cholecystectomy clips are again seen. There is patchy left basilar atelectasis and/or infiltrate redemonstrated. Righ t lung remains clear. No pleural effusion or pneumothorax is seen bilaterally. Cardiac silhouette siz e is stable and within normal limits. Osseous structures are intact. IMPRESSION: Persistent patchy left basilar atelectasis and/or infiltrate. No new infiltrate is seen. No significant change from most recent chest x-ray.
[2018-12-27 10:32] LABS: Calcium 7.7 mg/dL (8.4-10.2); Potassium 4.1 mmol/L (3.5-5.1)
[2018-12-27 14:54] VITALS: BP 116/77; PULSE 70; TEMP 98.4
--- NOTE | 2018-12-27 16:13 | DS ---
DISCHARGE SUMMARY DATE OF ADMISSION: 12/24/2018 DATE OF DISCHARGE: 12/27/2018 FINAL DIAGNOSES: 1. Acute metabolic encephalopathy from Neurontin toxicity in the setting of acute renal failure, POA. 2. Acute renal failure/prerenal from decreased oral intake, POA. 3. Acute urinary tract infection with cystitis from Klebsiella pneumoniae, POA. 4. Severe cognitive impairment from early-onset Alzheimer's dementia. 5. Chronic kidney disease, stage III. Baseline creatinine 1.6. 6. Bilateral nephrolithiasis. 7. Essential hypertension. 8. Primary osteoarthritis. 9. Coronary artery disease with stent. 10.Bruising around the right eye from recent fall at the [facility]. 11.CODE STATUS: DO NOT RESUSCITATE. HOSPITAL COURSE: This patient presented weak, tired, lethargic, not eating or drinking. Patient was found to be in acute renal failure. Creatinine had gone up to 1.8; with hydration it did come down to 1.46. Patient was found to be in Neurontin toxicity. Dose of Neurontin was cut back. Patient is doing better, tolerating a diet. She did actually walk with her . Overall prognosis is guarded. Patient has rather advanced dementia at baseline. She does talk when she wants to do the same. Urine culture did come back showing Klebsiella pneumoniae. On examination, temperature 98.4, pulse 70, respiration 16, blood pressure 116/77, pulse ox 98% on room air. LUNGS: Fair air entry. PSYCH: Patient is confused. LABS: BUN 16, creatinine 1.55. DISCHARGE MEDICATIONS: 1. Vitamin D2, 50,000 units on Monday, Monday, Monday. 2. Neurontin 200 mg at bedtime (decreased dose). 3. Fish oil 1400 mg p.o. at bedtime. 4. Metamucil 6 grams p.o. b.i.d. 5. Sodium bicarb 650 mg p.o. t.i.d. 6. Aspirin 81 mg at bedtime. 7. Keflex 500 mg p.o. q.6; 28 capsules. 8. Lexapro 20 mg p.o. daily. 9. Pepcid 20 mg p.o. daily. 10.Iron 325 p.o. at bedtime. 11.Magnesium oxide 400 mg p.o. b.i.d. 12.Potassium 20 mEq at bedtime. 13.Lamictal as before. 14.Tylenol 650 mg q.6 p.r.n. 15.Lomotil 1 tablet q.6 p.r.n. 16.Ativan 1 mg p.o. at bedtime. 17.Ultram 100 mg q.8 p.r.n. DISCONTINUED MEDICATION: Neurontin 300 mg in the morning. DISPOSITION: [facility]. Follow up with Dr. Bustillo at the [facility]. Labs CBC, BMP in 3 days. Prognosis is guarded. Care was discussed in detail with the patient's . MMODL / IJN: [id number] /
--- NOTE | 2018-12-27 23:34 | PN ---
PROGRESS NOTE DATE OF SERVICE: 12/24/2018. CORRECTION: My note dictated on 12/25/2018 at 2204 hours. MMODL / IJN: [id number] /
--- NOTE | 2018-12-27 23:40 | PN ---
PROGRESS NOTE ADDENDUM TO PROGRESS NOTE: DATE OF SERVICE: 12/25/2018 Patient's progress note dictated on at 2204 hours, date transcribed 12/25/2018 at 2321 hours. The correct date of service should ready 12/25/2018. MMJO / IJYahaira: [id number] /
--- NOTE | 2018-12-27 23:55 | PN ---
PROGRESS NOTE DATE OF SERVICE: 12/26/2018 PRESENTING COMPLAINT: Tired. INTERVAL HISTORY: Patient presented with acute UTI and Neurontin toxicity in the setting of renal failure. Patient is doing better, has been out of bed. Did tolerate some diet. Urine cultures are pending. Patient does not talk much; very bahena. is present. He tried to feed her. She did eat a bit better today. REVIEW OF SYSTEMS: Attempted. Patient not really talking much. CURRENT MEDICATIONS: Reviewed. They include IV ceftriaxone and IV fluids. PHYSICAL EXAMINATION: Temperature 98.4, pulse 72, respiration 16, blood pressure 115/72, pulse ox 100% on room air. GENERAL APPEARANCE: Lying in bed, awake. Not talking. EYES: Pupils equal. Conjunctivae pale. NECK: JVD not raised. Mass not palpable. RESPIRATORY: Effort normal. Lungs are clear. CARDIOVASCULAR: First and second sounds normal. No edema. ABDOMEN: Soft, non-tender. Liver and spleen not palpable. PSYCHIATRY: Awake but not answering questions. INVESTIGATIONS: BUN 16, creatinine 1.46. ASSESSMENT: 1. Acute metabolic encephalopathy from Neurontin toxicity in the setting of acute renal failure. 2. Acute renal failure, prerenal, from decreased oral intake. 3. Acute urinary tract infection with cystitis from gram-negative bacilli. 4. Severe cognitive impairment from early-onset Alzheimer's dementia. 5. Chronic kidney disease, baseline creatinine 1.6, from nephrosclerosis. 6. Bilateral nephrolithiasis. 7. Essential hypertension. 8. Primary osteoarthritis. 9. Coronary artery disease with stent. 10.Bruising around the right eye from recent fall. PLAN: Continue current medication and treatment plan. I spoke to the patient's . Patient has started to ambulate. Awaiting cultures of the urine. Patient should be able to be discharged tomorrow. MMODL / IJN: [id number] /
[2018-12-28] MEDS ORDERED: CALCITRIOL 0.25 MCG CAP PO SCH (12:00)
[2019-01-10] MEDS ORDERED: lamoTRIgine 100 MG TAB PO SCH (09:00)
[2019-01-17] MEDS ORDERED: lamoTRIgine 25 MG TAB PO SCH (09:00)
[2019-01-24] MEDS ORDERED: lamoTRIgine 25 MG TAB PO SCH (09:00)
== END 2018-12-27 17:42 ==
LOC: EC 13:42 → 4MS4W 14:42
PROVIDERS: ADMIT Hospitalist; ATTEND Hospitalist
DX: G92 Toxic encephalopathy (principal); T42.6X5A Adverse effect of other antiepileptic and sedative-hypnotic drugs, initial encounter; N17.9 Acute kidney failure, unspecified; N30.90 Cystitis, unspecified without hematuria; B96.1 Klebsiella pneumoniae [K. pneumoniae] as the cause of diseases classified elsewhere; I12.9 Hypertensive chronic kidney disease with stage 1 through stage 4 chronic kidney disease, or unspecified chronic kidney disease; N18.3 Chronic kidney disease, stage 3 (moderate); G30.0 Alzheimer's disease with early onset; F02.80 Dementia in other diseases classified elsewhere, unspecified severity, without behavioral disturbance, psychotic disturbance, mood disturbance, and anxiety; N20.0 Calculus of kidney; M19.91 Primary osteoarthritis, unspecified site; K50.90 Crohn's disease, unspecified, without complications; D64.9 Anemia, unspecified; E07.9 Disorder of thyroid, unspecified; F32.9 Major depressive disorder, single episode, unspecified; I25.10 Atherosclerotic heart disease of native coronary artery without angina pectoris; S00.11XA Contusion of right eyelid and periocular area, initial encounter; W19.XXXA Unspecified fall, initial encounter; Z91.81 History of falling; Y92.129 Unspecified place in nursing home as the place of occurrence of the external cause; Z79.82 Long term (current) use of aspirin; Z79.899 Other long term (current) drug therapy; Z66 Do not resuscitate; Z95.5 Presence of coronary angioplasty implant and graft; Z90.710 Acquired absence of both cervix and uterus; Z90.49 Acquired absence of other specified parts of digestive tract; Z87.891 Personal history of nicotine dependence; Z82.5 Family history of asthma and other chronic lower respiratory diseases
CPT/HCPCS: 96376; 96365; 96366; 96372 ×3; 99285; 36415; 93005; 97116; 97162; 97535 ×2; 97166; 80053; 80048 ×3; 83605; 85025 ×2; 85610; 85730; 81001; 87040; 87086; 87077; 87186; 71045 ×4; 71046; G0378 ×4; J1650 ×3; J0696 ×3